=== PATIENT | male | born 1965 | race Caucasian/White ===

== ENCOUNTER 2016-11-12 14:38 | Emergency (ER) | payer BC ==
[~2016-11-12] VITALS: Ht 182.9 cm; Wt 107.1 kg
[~2016-11-12 14:38] MED LIST: ARIP15TA7 PO; ASPI81TA2 PO; ATOR40TA29 PO; CITA40TA6 PO; CLOP75TA33 PO; FISH1CAP29 PO; HYDR-3989 PO; INSU100I3 SQ; INSU100V12 SQ; OMEP40CA52 PO; PANT40TA27 PO
--- NOTE | 2016-11-12 14:40 | NUR ---
ACTIVITY PATIENT AMBULATORY TO RESTROOM, PATIENT CONTINUES TO BE UNSTEADY ON HIS FEET, PATIENT ASSISTED TO RESTROOM AND RN REMAINS IN RESTROOM WITH PATIENT, PATIENT VOIDS LARGE AMOUNT PALE YELLOW URINE. PATIENT ASSISTED BACK TO BED.
[2016-11-12 14:41] VITALS: Ht 182.9 cm; Wt 107.1 kg
--- OUTSIDE RECORDS SUMMARY | 2016-11-12 14:42 | XMS REPORT | Continuity of Care Document ---
Author Author [facility] Organization [facility] Address Unknown Phone Unavailable Support Name Relationship Address Phone PHOENIX CHANDLER II, MD Caregiver [address] [phone] LORENZO QUILES MD Caregiver [address] [place] [address] [place] [phone] NYLA WATTS Next Of Kin [address] [place] [address] CP Insurance Providers Payer Name Policy Number Subscriber Name Relationship [facility] [id number] Nyla Watts 01 Spouse Advance Directives Directive Response Recorded Date/Time Advanced Directives Type None 12/15/13 9:23pm Ordered Resuscitation Status Full Code 12/15/13 7:47pm Chief Complaint and Reason for Visit Chief Complaint Chest Pain Reason for Visit Orthostasis [id number] Chest pain Problems Medical Problems Problem Onset Date Status Clostridium difficile colitis Unknown Active Clostridium difficile colitis Unknown Active IDDM (insulin dependent diabetes mellitus) Unknown Active Orthostasis Unknown Active Chest pain Unknown Active IDDM (insulin dependent diabetes mellitus) Unknown Active IDDM (insulin dependent diabetes mellitus) Unknown Active Abnormal head CT Unknown Active IDDM (insulin dependent diabetes mellitus) Unknown Active Medications Medication Dose Route Sig Days/Qty Instructions Order Date Discontinued Date Status Insulin Lispro 20 U SQ WITH MEALS 09/10/08 10/27/11 Discontinued Clopidogrel Bisulfate 1 Tab PO DAILY 09/10/08 10/06/10 Discontinued Ranitidine Hcl DAILY 10/06/10 Active Citalopram Hydrobromide 40 DAILY 10/06/10 Active Insulin Glargine 40 SQ BEDTIME 10/06/10 10/27/11 Discontinued Insulin Detemir 28 U SQ TWICE A DAY 10/27/11 02/17/13 Discontinued [Insulin] 20 BEFORE MEALS 10/27/11 02/17/13 Discontinued Aspirin 325 Mg PO DAILY 02/17/13 Active Fish Oil/[place]-3 Fatty Acids 4 Cap PO DAILY 02/17/13 Active Insulin Glulisine 20 U SQ BEFORE MEALS 02/17/13 Active Insulin Detemir 8-12 U SQ TWICE A DAY 12/15/13 Active Atorvastatin Calcium 40 Mg PO BEDTIME 12/15/13 Active Omeprazole 20 Mg PO BEDTIME 12/15/13 Active Bupropion Hcl 100 Mg PO TWICE A DAY 12/15/13 Active Colestipol Hcl 5 G PO TWICE A DAY 01/13/14 Active Scopolamine Hydrobromide 0.4 Mg PO FOUR TIMES DAILY 01/14/14 Active Social History Social History Problem Response Recorded Date/Time Smoking Status Current every day smoker 01/14/2014 8:09am Chewing Tobacco Status No 01/13/2014 5:04pm Hx Substance Use No 01/13/2014 5:04pm Hx Alcohol Use No 12/15/2013 8:23pm Has the pt used tobacco in the last 12 months Yes 01/14/2014 8:09am Query Response Start Date Stop Date Smoking Status Current every day smoker Hospital Discharge Instructions Instructions: Care Instructions: Reason for Hospitalization: CHEST PAIN, ORTHOSTATIS, POOR DIABETES CONTROL I was in the hospital because (patient own words): "I THOUGHT I WAS HAVING A HEART ATTACK" Follow Up Appointments: FOLLOW UP WITH: - DR. CHANDLER 12/28/13 AT 8:30 AM - [phone] - DR. GARBER 12/24/13 AT 3:15 PM - [phone] Condition at time of discharge: Good Care Plan Discharge Patient: Patient Instructions: see patient instructions Plan of Care Discharge Date 12/16/13 3:15pm Disposition 02 TO OBS [facility] Condition at Discharge Stable Instructions/Education Provided DI for Diabetes Type 2 DI for Chest Pain Prescriptions See Medications Section Referrals PHOENIX CHANDLER II, MD Functional Status Query Response Date Recorded Physical Hygiene Self December 16, 2013 2:56pm Disabilities None December 16, 2013 2:56pm Devices Used None December 16, 2013 2:56pm Dressing Self December 16, 2013 2:56pm Ambulation Self December 16, 2013 2:56pm Diet Self December 16, 2013 2:56pm Mental Status Alert Oriented December 16, 2013 2:56pm Disabilities None December 16, 2013 2:56pm Devices Used None December 16, 2013 2:56pm Physical Hygiene Self December 16, 2013 2:56pm Dressing Self December 16, 2013 2:56pm Ambulation Self December 16, 2013 2:56pm Diet Self December 16, 2013 2:56pm Allergies, Adverse Reactions, Alerts Allergen Type Severity Reaction Status Last Updated No Known Drug Allergies Allergy Unknown Active 12/15/13 Immunizations Name Given Type Hx Influenza Vaccination No Historical Hx Pneumococcal Vaccination No Historical Hx Tetanus, Diptheria, Pertussis No Historical Hx Influenza Vaccination No Historical Hx Tetanus, Diptheria, Pertussis No Historical Vital Signs Acute Vital Signs Vital Response Date/Time Temperature (Fahrenheit) 96.9 deg F (96.8 - 99.1) Temperature (Calculated Celsius) 36.25915 degrees C (36.0 - 37.3) Temperature Source Temporal Pulse Rate (adult) 101 bpm (60 - 100) Respiratory Rate 20 breaths/min (10 - 20) O2 Sat by Pulse Oximetry 97 % (90 - 100) Blood Pressure 122/72 mm Hg Blood Pressure Source Automatic Cuff Height 6 ft 0 in Weight 191 lb Body Mass Index 26.0 kg/m^2 Results Test Source Date Result Interp. Ref. Range Comments Acetone Level December 15, 2013 6:50pm Negative - Activated Partial Thromboplast Time December 15, 2013 6:50pm 29.4 SEC N 24- 36 Ordering r/o VTE Yes Alanine Aminotransferase (ALT/SGPT) December 15, 2013 6:50pm 32 U/L N 21-72 Albumin December 15, 2013 6:50pm 3.8 G/DL N 3.5-5.0 Albumin/Globulin Ratio December 15, 2013 6:50pm 1.4 RATIO N 1.1-2.2 Alkaline Phosphatase December 15, 2013 6:50pm 125 U/L N 38-126 Amylase Level December 15, 2013 6:50pm 49 U/L N 30-110 Anion Gap December 15, 2013 6:50pm 8 MEQ/L N 5-15 Arterial Blood Base Excess February 17, 2013 1:30pm -0.9 MMOL/L N -2.0- 2.0 Arterial Blood HCO3 February 17, 2013 1:30pm 24 MEQ/L N 22-26 Arterial Blood Oxygen Content February 17, 2013 1:30pm 1.5 - Arterial Blood Oxygen Saturation February 17, 2013 1:30pm 95.0 % N 95.0- 98.0 Arterial Blood Partial Pressure CO2 February 17, 2013 1:30pm 37 MMHG N 34- 45 Arterial Blood Total CO2 February 17, 2013 1:30pm 24.6 MEQ/L N 23-27 Arterial Blood pH February 17, 2013 1:30pm 7.410 N 7.350-7.450 Aspartate Amino Transf (AST/SGOT) December 15, 2013 6:50pm 20 U/L N 17-59 BUN/Creatinine Ratio December 15, 2013 6:50pm 38 RATIO H 6-26 Basophils # (Auto) December 15, 2013 6:50pm 0.1 T/MM3 N 0-0.2 Ordering r/o VTE Yes Basophils (%) (Auto) December 15, 2013 6:50pm 0.7 % N 0-2 Ordering r/o VTE Yes Blood Urea Nitrogen December 15, 2013 6:50pm 19.0 MG/DL N 9-20 Calcium Level December 15, 2013 6:50pm 9.3 MG/DL N 8.4-10.2 Calculated Osmolality December 15, 2013 6:50pm 268 MOSM/KG N 261-280 Carbon Dioxide Level December 15, 2013 6:50pm 26 MEQ/L N 22-30 Chloride Level December 15, 2013 6:50pm 104 MEQ/L N 98-107 Conjugated Bilirubin November 07, 2011 2:16am 0.00 MG/DL N 0.00-0.30 Creatinine December 15, 2013 6:50pm 0.5 MG/DL L 0.8-1.5 D-Dimer December 15, 2013 6:50pm < 150 NG/ML 0-230 <224 NG/ML= PRESUMPTIVE NEGATIVE FOR PE OR DVT>224 NG/ML=ADDITIONAL EVALUATION FOR PE OR DVT RECOMMENDED Eosinophils # (Auto) December 15, 2013 6:50pm 0.2 T/MM3 N 0-0.5 Ordering r/ o VTE Yes Eosinophils # (Manual) October 13, 2013 2:02pm 0.7 T/MM3 H 0-0.5 Eosinophils % (Manual) October 13, 2013 2:02pm 5.0 % H 0-4 Eosinophils (%) (Auto) December 15, 2013 6:50pm 1.7 % N 0-4 Ordering r/o VTE Yes Globulin December 15, 2013 6:50pm 2.8 G/DL N 2.4-3.6 Glucose Level December 15, 2013 6:50pm 98 MG/DL N 75-110 Hematocrit December 15, 2013 6:50pm 40.6 % L 41-53 Ordering r/o VTE Yes Hemoglobin December 15, 2013 6:50pm 13.4 GM/DL L 13.5-17.5 Ordering r/o VTE Yes Hemoglobin A1c November 07, 2011 7:00am 11.0 % H 6-7 <6.0 NON-DIABETIC RANGE6.0-7.0 ADA THERAPEUTIC RANGE >7.0 ACTION SUGGESTED Lipase December 15, 2013 6:50pm 59 U/L N 23-300 Lymphocytes # (Auto) December 15, 2013 6:50pm 3.5 T/MM3 N 1-4.8 Ordering r/ o VTE Yes Lymphocytes # (Manual) October 13, 2013 2:02pm 2.4 T/MM3 N 1-4.8 Lymphocytes % (Manual) October 13, 2013 2:02pm 18.0 % L 23-45 Lymphocytes (%) (Auto) December 15, 2013 6:50pm 31.7 % N 23-45 Ordering r/ o VTE Yes Magnesium Level December 15, 2013 6:50pm 1.9 MG/DL N 1.6-2.3 Mean Corpuscular Hemoglobin December 15, 2013 6:50pm 23.0 UUG L 26-34 Ordering r/o VTE Yes Mean Corpuscular Hemoglobin Concent December 15, 2013 6:50pm 33.0 GM/DL N 31 -37 Ordering r/o VTE Yes Mean Corpuscular Volume December 15, 2013 6:50pm 69.8 UM3 L 80-100 Ordering r/o VTE Yes Mean Platelet Volume December 15, 2013 6:50pm 10.1 UM3 N 9.4-12.4 Ordering r/o VTE Yes Monocytes # (Auto) December 15, 2013 6:50pm 0.9 T/MM3 H 0-0.8 Ordering r/o VTE Yes Monocytes # (Manual) October 13, 2013 2:02pm 0.8 T/MM3 N 0-0.8 Monocytes % (Manual) October 13, 2013 2:02pm 6.0 % N 0-9.0 Monocytes (%) (Auto) December 15, 2013 6:50pm 8.3 % N 0-9.0 Ordering r/o VTE Yes Neutrophils # (Auto) December 15, 2013 6:50pm 6.2 T/MM3 N 1.8-7.7 Ordering r/o VTE Yes Neutrophils # (Manual) October 13, 2013 2:02pm 9.4 T/MM3 H 1.8-7.7 Neutrophils % (Manual) October 13, 2013 2:02pm 71.0 % H 33-66 Neutrophils (%) (Auto) December 15, 2013 6:50pm 57.3 % N 33-66 Ordering r/ o VTE Yes Platelet Count December 15, 2013 6:50pm 274 T/MM3 N 130-400 Ordering r/o VTE Yes Potassium Level December 15, 2013 6:50pm 3.6 MEQ/L N 3.6-5 Prothromb Time International Ratio December 15, 2013 6:50pm 0.81 N 0.81- 1.09 THERAPUTIC RANGE=2.00-3.00 FOR ANTI-THROMBOSIS THERAPUTIC RANGE=2.50- 3.50 FOR IMPLANTED VALVE RDW Standard Deviation December 15, 2013 6:50pm 41.6 FL N 36.9-50.2 Ordering r/o VTE Yes Red Blood Count December 15, 2013 6:50pm 5.82 M/MM3 N 4.50-5.90 Ordering r/ o VTE Yes Sodium Level December 15, 2013 6:50pm 138 MEQ/L N 134-144 Stool for White Cells October 13, 2013 1:49pm Positive - Has specimen been collected/obtained? Y Thyroid Stimulating Hormone (TSH) December 15, 2013 6:50pm 2.07 MIU/L N 0.47 -4.68 Total Bilirubin December 15, 2013 6:50pm 0.10 MG/DL L 0.20-1.30 Total Protein December 15, 2013 6:50pm 6.6 G/DL N 6.3-8.2 Troponin I December 16, 2013 4:40am < 0.012 ng/ml 0-0.12 Unconjugated Bilirubin November 07, 2011 2:16am 0.10 MG/DL N 0.00-1.10 Urine Bilirubin December 15, 2013 7:05pm 1+ H - Has specimen been collected /obtained? Y Urine Blood December 15, 2013 7:05pm Negative - Has specimen been collected/obtained? Y Urine Collection Type December 15, 2013 7:05pm Voided-not cc-midstr - Has specimen been collected/obtained? Y Urine Color December 15, 2013 7:05pm Yellow - Has specimen been collected /obtained? Y Urine Glucose (UA) December 15, 2013 7:05pm 1+ H - Has specimen been collected/obtained? Y Urine Ketones December 15, 2013 7:05pm 1+ H - Has specimen been collected/ obtained? Y Urine Leukocyte Esterase December 15, 2013 7:05pm Negative - Has specimen been collected/obtained? Y Urine Nitrite December 15, 2013 7:05pm Negative - Has specimen been collected/obtained? Y Urine Protein December 15, 2013 7:05pm Negative - Has specimen been collected/obtained? Y Urine Specific [place] December 15, 2013 7:05pm 1.025 - Has specimen been collected/obtained? Y Urine Turbidity December 15, 2013 7:05pm Clear - Has specimen been collected/obtained? Y Urine Urobilinogen December 15, 2013 7:05pm 0.2 EU/DL - Has specimen been collected/obtained? Y Urine pH December 15, 2013 7:05pm 6.0 - Has specimen been collected/ obtained? Y Vitamin B12 Level November 07, 2011 7:00am 845 PG/ML N 239-931 COMMENT may use blood in lab White Blood Count December 15, 2013 6:50pm 10.9 T/MM3 N 4.5-11.0 Ordering r /o VTE Yes Chemistry Specimen Hemolysis December 16, 2013 4:40am < 15 0-25 0-25: No Hemolysis.26-70: Slight Hemolysis - can falsely elevate K and Urine Protein. 71-285: Moderate Hemolysis - can falsely elevate K, Troponin I, CA 19-9, PTH, CSF GLucose, and Urine Protein, and can falsely decrease Phenytoin. 286-999: Gross Hemolysis - can falsely elevate K, Troponin I, CA 19-9, PTH, CSF Glucose, and Urine Protine, and can falsely decrease Phenytoin. Recommend specimen recollection. Oxygen Delivery Method (LAB) February 17, 2013 1:30pm Nasal cannula,liters - Urinalysis Comment December 15, 2013 7:05pm Microscopic not ind. - Has specimen been collected/obtained? Y Glucometer January 14, 2014 8:10am 389 mg/dL H 75-110 Turbidity December 15, 2013 6:50pm < 20 0-20 Glomerular Filtration Rate Calc December 15, 2013 6:50pm 179 - Immature Granulocyte # (Auto) December 15, 2013 6:50pm 0.03 T/MM3 N 0.00- 0.03 Ordering r/o VTE Yes Immature Granulocyte % (Auto) December 15, 2013 6:50pm 0.3 % N 0.0-0.5 Ordering r/o VTE Yes Arterial Blood pO2 at Patient Temp February 17, 2013 1:30pm 76 MMHG L 80- 100 Icterus Index December 15, 2013 6:50pm < 2 0-7 [id number]-Z-[id number] Natriuretic Peptide December 15, 2013 6:50pm 41 PG/ML N 0-175 Rule in cut points: <50 years old=450; 50-75 years old=900; >75 years old=1800; When utilizing ProBNP rule-in cut points, adjustment for impaired renal function is typically not required. Urine Microscopic Not Indicated November 07, 2011 3:10am Not indicated - Has specimen been collected/obtained? Y C. difficile Toxin B Gene (PCR) October 13, 2013 1:49pm Positive H - Has specimen been collected/obtained? Y Blood Culture Blood November 07, 2011 3:40am NO GROWTH AFTER 5 DAYS Stool Culture Stool October 13, 2013 1:49pm Ova and Parasites Stool October 13, 2013 2:45pm Procedures Procedure Status Date Provider(s) Colonoscopy completed 01/14/14 LORENZO QUILES MD Encounters Encounter Location Date/Time Registered Clinic [facility] 01/14/14 7:52am Registered Clinic [facility] 12/31/13 8:09am Discharged Inpatient [facility] 12/15/13 8:30pm Discharged Recurring [facility] 11/05/13 8:25am Recent Diagnosis IDDM (insulin dependent diabetes mellitus)
--- OUTSIDE RECORDS SUMMARY | 2016-11-12 14:43 | XMS REPORT | Continuity of Care Document ---
Author Author [facility] Organization [facility] Address Unknown Phone Unavailable Support Name Relationship Address Phone FREDERICK AYALA MD Caregiver [facility] [address] [place] [address] SAHRA KELLY [address] [place] [id number] LEO COLUNGA DO Caregiver [facility] [address] [place] [address] PHOENIX RUSSELL II, MD Caregiver [address] [place] [address] [phone] NYLA WATTS Next Of Kin [address] [place] [address] CP Insurance Providers Payer Name Policy Number Subscriber Name Relationship [facility] [id number] Nyla Watts 01 Spouse Advance Directives Directive Response Recorded Date/Time Advanced Directives Type None 12/15/13 9:23pm Ordered Resuscitation Status Full Code 12/15/13 7:47pm Resuscitation Documents on File No 07/19/14 6:50pm Chief Complaint and Reason for Visit Chief Complaint RT SIDE NUMBNESS,BLURRED VISION RT EYE Reason for Visit Numbness on right side Blurred vision, right eye Numbness on right side Problems Medical Problems Problem Onset Date Status Clostridium difficile colitis Unknown Active Clostridium difficile colitis Unknown Active IDDM (insulin dependent diabetes mellitus) Unknown Active Orthostasis Unknown Active Chest pain Unknown Active IDDM (insulin dependent diabetes mellitus) Unknown Active IDDM (insulin dependent diabetes mellitus) Unknown Active Abnormal head CT Unknown Active IDDM (insulin dependent diabetes mellitus) Unknown Active Numbness on right side Unknown Active Blurred vision, right eye Unknown Active Numbness on right side Unknown Active Medications Medication Dose Route Sig Days/Qty Instructions Order Date Discontinued Date Status Insulin Lispro 20 U SQ WITH MEALS 09/10/08 10/27/11 Discontinued Clopidogrel Bisulfate 1 Tab PO DAILY 09/10/08 10/06/10 Discontinued Ranitidine Hcl 150 Mg PO BEDTIME 10/06/10 Active Insulin Glargine 40 SQ BEDTIME 10/06/10 10/27/11 Discontinued Insulin Detemir 28 U SQ TWICE A DAY 10/27/11 02/17/13 Discontinued [Insulin] 20 BEFORE MEALS 10/27/11 02/17/13 Discontinued Aspirin 325 Mg PO BEDTIME 02/17/13 07/20/14 Discontinued Fish Oil/[place]-3 Fatty Acids 4 Cap PO BEDTIME 02/17/13 Active Insulin Glulisine 20 U SQ TWICE DAILY BREAKFAST & LUNCH 02/17/13 Active Insulin Detemir 12 U SQ BEDTIME 12/15/13 Active Atorvastatin Calcium 40 Mg PO BEDTIME 12/15/13 Active Citalopram Hydrobromide 1 Tab PO BEDTIME 02/03/14 Active Omeprazole 20 Mg PO BEDTIME 02/03/14 07/20/14 Discontinued Insulin Glulisine 22 Unit SQ GIVE WITH SUPPER 02/03/14 Active Insulin Detemir 13 Unit SQ DAILY MORNING INSULIN 02/03/14 Active Meclizine HCl 25 Mg PO TWICE A DAY 02/03/14 Active Aspirin 81 Mg PO DAILY For CAD 30 Days 07/20/14 Active Clopidogrel Bisulfate 75 Mg PO DAILY For CVA 30 Days 07/20/14 Active Pantoprazole Sodium 40 Mg PO BEFORE BREAKFAST 30 Qty Take 1 tablet, by mouth, one time a day before breakfast. 07/20/14 Active Social History Social History Problem Response Recorded Date/Time Hx Substance Use No 07/19/2014 12:40pm Hx Alcohol Use No 07/19/2014 12:40pm Has the pt used tobacco in the last 12 months Yes 07/19/2014 6:50pm Tobacco Usage smoke 10/13/2013 4:57pm Query Response Start Date Stop Date Smoking Status Current every day smoker Hospital Discharge Instructions Instructions: Care Instructions: Reason for Hospitalization: CVA I was in the hospital because (patient own words): "NUMBNESS ON MY RIGHT SIDE" Discharge Diet: ADA 1999 Discharge Activity: As tolerated do not return to work until after appointment with on saturday. dr. russell states that it is ok for you to drive to [place] for class tomorrow 07/21 if you decide to not cancel your class. Follow Up Appointments: APPOINTMENT WITH DR. TAVARES ON JUL 21 AT 4:00. With Dr Russell 07/26 at 9:15 AM [facility] Patient Instructions: Stop Smoking STOP BY THE CLINIC AFTER DISCHARGE TODAY FOR [facility] SAMPLES Condition at time of discharge: Good Condition at time of discharge: Good have your Surgeon paged. Condition at time of discharge: [place] Plan of Care Discharge Date 07/20/14 4:20pm Disposition 01 DISCHARGED HOME, SELF-CARE Instructions/Education Provided Ischemic Stroke Prescriptions See Medications Section Functional Status Query Response Date Recorded Physical Hygiene Self July 19, 2014 12:40pm Disabilities None December 16, 2013 2:56pm Devices Used None December 16, 2013 2:56pm Dressing Self December 16, 2013 2:56pm Ambulation Self December 16, 2013 2:56pm Diet Self December 16, 2013 2:56pm Mental Status Alert Oriented December 16, 2013 2:56pm Disabilities None December 16, 2013 2:56pm Devices Used None December 16, 2013 2:56pm Physical Hygiene Self July 19, 2014 12:40pm Dressing Self December 16, 2013 2:56pm Ambulation Self December 16, 2013 2:56pm Diet Self December 16, 2013 2:56pm Allergies, Adverse Reactions, Alerts Allergen Type Severity Reaction Status Last Updated No Known Drug Allergies Allergy Unknown Active 02/03/14 Immunizations Name Given Type Hx Influenza Vaccination No Historical Hx Pneumococcal Vaccination No Historical Hx Tetanus, Diptheria, Pertussis No Historical Hx Influenza Vaccination No Historical Hx Tetanus, Diptheria, Pertussis No Historical Vital Signs Acute Vital Signs Vital Response Date/Time Temperature (Fahrenheit) 98.6 deg F (96.8 - 99.1) Temperature (Calculated Celsius) 37.83836 degrees C (36.0 - 37.3) Temperature Source Temporal Pulse Rate (adult) 75 bpm (60 - 100) Respiratory Rate 16 breaths/min (10 - 20) O2 Sat by Pulse Oximetry 95 % (90 - 100) Oxygen Delivery Method Room Air Blood Pressure 119/85 mm Hg Blood Pressure Source Automatic Cuff Height 6 ft 0 in Weight 201 lb Body Mass Index 27.0 kg/m^2 Results Test Source Date Result Interp. Ref. Range Comments Acetone Level December 15, 2013 6:50pm Negative - Activated Partial Thromboplast Time July 19, 2014 1:02pm 28.8 SEC N 24-36 Alanine Aminotransferase (ALT/SGPT) July 19, 2014 1:02pm 29 U/L N 21- 72 Albumin July 19, 2014 1:02pm 4.0 G/DL N 3.5-5.0 Albumin/Globulin Ratio July 19, 2014 1:02pm 1.5 RATIO N 1.1-2.2 Alkaline Phosphatase July 19, 2014 1:02pm 124 U/L N 38-126 Amylase Level December 15, 2013 6:50pm 49 U/L N 30-110 Anion Gap July 19, 2014 1:02pm 7 MEQ/L N 5-15 Arterial Blood Base Excess [...] February 17, 2013 1:30pm 7.410 N 7.350-7.450 Arterial Blood pO2 at Patient Temp February 17, 2013 1:30pm 76 MMHG L 80- 100 Aspartate Amino Transf (AST/SGOT) July 19, 2014 1:02pm 28 U/L N 17- 59 BUN/Creatinine Ratio July 19, 2014 1:02pm 27 RATIO H 6-26 Basophils # (Auto) July 19, 2014 1:03pm 0.1 T/MM3 N 0-0.2 Basophils (%) (Auto) July 19, 2014 1:03pm 1.0 % N 0-2 Blood Urea Nitrogen July 19, 2014 1:02pm 19.0 MG/DL N 9-20 C. difficile Toxin B Gene (PCR) October 13, 2013 1:49pm Positive H - Has specimen been collected/obtained? Y Calcium Level July 19, 2014 1:02pm 9.5 MG/DL N 8.4-10.2 Calculated Osmolality July 19, 2014 1:02pm 280 MOSM/KG N 261-280 Carbon Dioxide Level July 19, 2014 1:02pm 29 MEQ/L N 22-30 Chemistry Specimen Hemolysis July 19, 2014 1:02pm < 15 0-25 0-25: No Hemolysis.26-70: Slight [...] can falsely decrease Phenytoin. Recommend specimen recollection. Chloride Level July 19, 2014 1:02pm 105 MEQ/L N 98-107 Conjugated Bilirubin November 07, 2011 2:16am 0.00 MG/DL N 0.00-0.30 Creatinine July 19, 2014 1:02pm 0.7 MG/DL L 0.8-1.5 D-Dimer December 15, 2013 6:50pm < 150 NG/ML 0-230 <224 NG/ML= PRESUMPTIVE NEGATIVE FOR PE OR DVT>224 NG/ML=ADDITIONAL EVALUATION FOR PE OR DVT RECOMMENDED Eosinophils # (Auto) July 19, 2014 1:03pm 0.1 T/MM3 N 0-0.5 Eosinophils # (Manual) October 13, 2013 2:02pm 0.7 T/MM3 H 0-0.5 Eosinophils % (Manual) October 13, 2013 2:02pm 5.0 % H 0-4 Eosinophils (%) (Auto) July 19, 2014 1:03pm 1.0 % N 0-4 Globulin July 19, 2014 1:02pm 2.7 G/DL N 2.4-3.6 Glomerular Filtration Rate Calc July 19, 2014 1:02pm 121 - Glucometer July 20, 2014 3:57pm 69 mg/dL L 75-110 Glucose Level July 19, 2014 1:02pm 228 MG/DL H 75-110 Hematocrit July 19, 2014 1:03pm 40.3 % L 41-53 Hemoglobin July 19, 2014 1:03pm 13.1 GM/DL L 13.5-17.5 Hemoglobin A1c November 07, 2011 7:00am 11.0 % H 6-7 <6.0 NON-DIABETIC RANGE6.0-7.0 ADA THERAPEUTIC RANGE >7.0 ACTION SUGGESTED Icterus Index July 19, 2014 1:02pm < 2 0-7 Immature Granulocyte # (Auto) July 19, 2014 1:03pm 0.03 T/MM3 N 0.00- 0.03 Immature Granulocyte % (Auto) July 19, 2014 1:03pm 0.3 % N 0.0-0.5 Lipase December 15, 2013 6:50pm 59 U/L N 23-300 Lymphocytes # (Auto) July 19, 2014 1:03pm 2.9 T/MM3 N 1-4.8 Lymphocytes # (Manual) October 13, 2013 2:02pm 2.4 T/MM3 N 1-4.8 Lymphocytes % (Manual) October 13, 2013 2:02pm 18.0 % L 23-45 Lymphocytes (%) (Auto) July 19, 2014 1:03pm 26.0 % N 23-45 Magnesium Level December 15, 2013 6:50pm 1.9 MG/DL N 1.6-2.3 Mean Corpuscular Hemoglobin July 19, 2014 1:03pm 23.6 UUG L 26-34 Mean Corpuscular Hemoglobin Concent July 19, 2014 1:03pm 32.5 GM/DL N 31-37 Mean Corpuscular Volume July 19, 2014 1:03pm 72.6 UM3 L 80-100 Mean Platelet Volume July 19, 2014 1:03pm 10.1 UM3 N 9.4-12.4 Monocytes # (Auto) July 19, 2014 1:03pm 0.7 T/MM3 N 0-0.8 Monocytes # (Manual) October 13, 2013 2:02pm 0.8 T/MM3 N 0-0.8 Monocytes % (Manual) October 13, 2013 2:02pm 6.0 % N 0-9.0 Monocytes (%) (Auto) July 19, 2014 1:03pm 6.7 % N 0-9.0 NF-Tpb-U-Type Natriuretic Peptide December 15, 2013 6:50pm 41 PG/ML N 0-175 Rule in cut points: <50 years old=450; 50-75 years old=900; >75 years old=1800; When utilizing ProBNP rule-in cut points, adjustment for impaired renal function is typically not required. Neutrophils # (Auto) July 19, 2014 1:03pm 7.2 T/MM3 N 1.8-7.7 Neutrophils # (Manual) October 13, 2013 2:02pm 9.4 T/MM3 H 1.8-7.7 Neutrophils % (Manual) October 13, 2013 2:02pm 71.0 % H 33-66 Neutrophils (%) (Auto) July 19, 2014 1:03pm 65.0 % N 33-66 Oxygen Delivery Method (LAB) February 17, 2013 1:30pm Nasal cannula,liters - Platelet Count July 19, 2014 1:03pm 226 T/MM3 N 130-400 Potassium Level July 19, 2014 1:02pm 3.8 MEQ/L N 3.6-5 Prothromb Time International Ratio July 19, 2014 1:02pm 0.94 N 0.81- 1.09 THERAPUTIC RANGE=2.00-3.00 FOR ANTI-THROMBOSIS THERAPUTIC RANGE=2.50- 3.50 FOR IMPLANTED VALVE RDW Standard Deviation July 19, 2014 1:03pm 42.5 FL N 36.9-50.2 Red Blood Count July 19, 2014 1:03pm 5.55 M/MM3 N 4.50-5.90 Sodium Level July 19, 2014 1:02pm 141 MEQ/L N 134-144 Stool for White Cells October 13, 2013 1:49pm Positive - Has specimen been collected/obtained? Y Thyroid Stimulating Hormone (TSH) December 15, 2013 6:50pm 2.07 MIU/L N 0.47 -4.68 Total Bilirubin July 19, 2014 1:02pm 0.50 MG/DL N 0.20-1.30 Total Protein July 19, 2014 1:02pm 6.7 G/DL N 6.3-8.2 Troponin I July 19, 2014 1:02pm < 0.012 ng/ml 0-0.12 Turbidity July 19, 2014 1:02pm < 20 0-20 Unconjugated Bilirubin November 07, 2011 2:16am 0.10 MG/DL N 0.00-1.10 Urinalysis Comment July 19, 2014 2:40pm Microscopic not ind. - Has specimen been collected/obtained? Y Urine Bilirubin July 19, 2014 2:40pm Negative - Has specimen been collected/obtained? Y Urine Blood July 19, 2014 2:40pm Negative - Has specimen been collected/obtained? Y Urine Collection Type July 19, 2014 2:40pm Cleancatch-midstream - Has specimen been collected/obtained? Y Urine Color July 19, 2014 2:40pm Yellow - Has specimen been collected/obtained? Y Urine Glucose (UA) July 19, 2014 2:40pm 3+ H - Has specimen been collected/obtained? Y Urine Ketones July 19, 2014 2:40pm Negative - Has specimen been collected/obtained? Y Urine Leukocyte Esterase July 19, 2014 2:40pm Negative - Has specimen been collected/obtained? Y Urine Microscopic Not Indicated November 07, 2011 3:10am Not indicated - Has specimen been collected/obtained? Y Urine Nitrite July 19, 2014 2:40pm Negative - Has specimen been collected/obtained? Y Urine Protein July 19, 2014 2:40pm Negative - Has specimen been collected/obtained? Y Urine Specific [place] July 19, 2014 2:40pm 1.010 L - Has specimen been collected/obtained? Y Urine Turbidity July 19, 2014 2:40pm Clear - Has specimen been collected/obtained? Y Urine Urobilinogen July 19, 2014 2:40pm 0.2 EU/DL - Has specimen been collected/obtained? Y Urine pH July 19, 2014 2:40pm 6.0 - Has specimen been collected/ obtained? Y Vitamin B12 Level November 07, 2011 7:00am 845 PG/ML N 785-298 COMMENT may use blood in lab White Blood Count July 19, 2014 1:03pm 11.1 T/MM3 H 4.5-11.0 Blood Culture Blood November 07, 2011 3:40am NO GROWTH AFTER 5 DAYS Stool Culture Stool October 13, 2013 1:49pm Ova and Parasites Stool October 13, 2013 2:45pm Name: ISRAEL WATTS Unit #: [id number] : [id number] Sex: M Loc / Sv: ED DOS: 07/19/14 Signed Report #: [id number] DIAGNOSTIC IMAGING REPORT TYPE OF EXAM: MRI BRAIN W/WO CONTRAST Dictated By: LENORE FLORES MD INDICATION: ITS.REASON: right sided numbness / blurred vision right eye MRI BRAIN W/WO CONTRAST: Comparisons: Head CT from earlier today and brain MRI dated December 31, 2013 Technique: Multiplanar, multisequence, MR imaging of the head with and without contrast was acquired. Contrast: 9 mL of Gadavist FINDINGS: The ventricles are of normal size, shape, and contour for the patient's age. The brain stem, cerebellum, and cerebral hemispheres have a normal morphologic appearance as well as MR signal intensity on all pulse sequences. Following intravenous administration of contrast, no areas of abnormal enhancement are evident. There are no areas of restricted diffusion to suggest an acute infarct. There is no evidence of an intracranial mass lesion, intracranial hemorrhage, or hydrocephalus. The visualized portions of the orbits, calvarium, paranasal sinuses, and skull base demonstrate no significant abnormality. IMPRESSION: Normal exam. No acute intracranial abnormality. . Procedures No known history of procedures. Encounters Encounter Location Date/Time Discharged Inpatient [facility] 07/19/14 3:59pm Recent Diagnosis Numbness on right side Blurred vision, right eye Numbness on right side
--- OUTSIDE RECORDS SUMMARY | 2016-11-12 14:43 | XMS REPORT | Continuity of Care Document ---
Author Author [facility] Organization [facility] Address Unknown Phone Unavailable Support Name Relationship Address Phone PHOENIX CHANDLER II, MD Caregiver [address] [place] [phone] LORENZO QUILES MD Caregiver [address] [place] [address] [place] [phone] NYLA WATTS Next Of Kin [address] [place] [address] CP Insurance Providers Payer Name Policy Number Subscriber Name Relationship [facility] [id number] Nyla Watts 01 Spouse Advance Directives Directive Response Recorded Date/Time Advanced Directives Type None 12/15/13 9:23pm Ordered Resuscitation Status Full Code 12/15/13 7:47pm Chief Complaint and Reason for Visit Chief Complaint Chest Pain Reason for Visit Orthostasis [id number] Chest pain Problems Medical Problems Problem Onset [...] 325 Mg PO DAILY 02/17/13 Active Fish Oil/[place]-3 Fatty Acids 4 Cap PO DAILY 02/17/13 [...] DR. CHANDLER 12/28/13 AT 8:30 AM - [phone] - DR. GARBER 12/24/13 AT 3:15 PM - [phone] Condition at time of discharge: Good Care Plan Discharge Patient: Patient Instructions: see patient instructions Problem: see problem list Care Plan Discharge Patient: Goal: Pain is contolled Patient Instructions: see patient instructions for immediate evaluation. Condition at time of discharge: Good Care Plan Discharge Patient: Goal: Maximum functional status Patient Instructions: see patient instructions Plan of Care Discharge Date 12/16/13 3:15pm Disposition 02 [place] [facility] [place] at Discharge Stable Instructions/Education Provided DI [...] F (96.8 - 99.1) Temperature (Calculated Celsius) 36.24233 degrees C (36.0 - 37.3) Temperature Source [...] L 80- 100 Aspartate Amino Transf (AST/SGOT) December 15, 2013 6:50pm 20 U/L N 17-59 BUN/Creatinine Ratio December 15, 2013 6:50pm 38 RATIO H 6-26 Basophils # (Auto) December 15, 2013 6:50pm 0.1 T/MM3 N 0-0.2 Ordering r/o VTE Yes Basophils (%) (Auto) December 15, 2013 6:50pm 0.7 % N 0-2 Ordering r/o VTE Yes Blood Urea Nitrogen December 15, 2013 6:50pm 19.0 MG/DL N 9-20 C. difficile Toxin B Gene (PCR) October 13, 2013 1:49pm Positive H - Has specimen been collected/obtained? Y Calcium Level December 15, 2013 6:50pm 9.3 MG/DL N 8.4-10.2 Calculated Osmolality December 15, 2013 6:50pm 268 MOSM/KG N 261-280 Carbon Dioxide Level December 15, 2013 6:50pm 26 MEQ/L N 22-30 Chemistry Specimen Hemolysis December 16, 2013 4:40am [...] decrease Phenytoin. Recommend specimen recollection. Chloride Level December 15, 2013 6:50pm 104 [...] 15, 2013 6:50pm 2.8 G/DL N 2.4-3.6 Glomerular Filtration Rate Calc December 15, 2013 6:50pm 179 - Glucometer January 14, 2014 8:10am 389 mg/dL H 75-110 Glucose Level December 15, 2013 6:50pm 98 MG/DL N 75-110 Hematocrit December 15, 2013 6:50pm 40.6 % L 41-53 Ordering r/o VTE Yes Hemoglobin December 15, 2013 6:50pm 13.4 GM/DL L 13.5-17.5 Ordering r/o VTE Yes Hemoglobin A1c November 07, 2011 7:00am 11.0 % H 6-7 <6.0 NON-DIABETIC RANGE6.0-7.0 ADA THERAPEUTIC RANGE >7.0 ACTION SUGGESTED Icterus Index December 15, 2013 6:50pm < 2 0-7 Immature Granulocyte # (Auto) December 15, 2013 6:50pm 0.03 T/MM3 N 0.00- 0.03 Ordering r/o VTE Yes Immature Granulocyte % (Auto) December 15, 2013 6:50pm 0.3 % N 0.0-0.5 Ordering r/o VTE Yes Lipase December 15, 2013 6:50pm 59 U/L [...] % N 0-9.0 Ordering r/o VTE Yes MH-Chd-C-Type Natriuretic Peptide December 15, 2013 6:50pm 41 PG/ML N 0-175 Rule in cut points: <50 years old=450; 50-75 years old=900; >75 years old=1800; When utilizing ProBNP rule-in cut points, adjustment for impaired renal function is typically not required. Neutrophils # (Auto) December 15, 2013 6:50pm 6.2 T/MM3 N 1.8-7.7 Ordering r/o VTE Yes Neutrophils # (Manual) October 13, 2013 2:02pm 9.4 T/MM3 H 1.8-7.7 Neutrophils % (Manual) October 13, 2013 2:02pm 71.0 % H 33-66 Neutrophils (%) (Auto) December 15, 2013 6:50pm 57.3 % N 33-66 Ordering r/ o VTE Yes Oxygen Delivery Method (LAB) February 17, 2013 1:30pm Nasal cannula,liters - Platelet Count December 15, 2013 6:50pm 274 [...] 16, 2013 4:40am < 0.012 ng/ml 0-0.12 Turbidity December 15, 2013 6:50pm < 20 0-20 Unconjugated Bilirubin November 07, 2011 2:16am 0.10 MG/DL N 0.00-1.10 Urinalysis Comment December 15, 2013 7:05pm Microscopic not ind. - Has specimen been collected/obtained? Y Urine Bilirubin December 15, 2013 7:05pm 1+ [...] Has specimen been collected/obtained? Y Urine Specific [place] December 15, 2013 7:05pm 1.025 - Has [...] N 4.5-11.0 Ordering r /o VTE Yes Blood Culture Blood November 07, 2011 3:40am NO GROWTH AFTER 5 DAYS Stool Culture Stool October 13, 2013 1:49pm Ova and Parasites Stool October 13, 2013 2:45pm Procedures Procedure Status Date Provider(s) Colonoscopy completed 01/14/14 LORENZO QUILES MD Encounters Encounter Location Date/Time Registered Clinic [facility] 12/31/13 8:09am Discharged Inpatient [facility] 12/15/13 8:30pm Discharged Recurring [facility] 11/20/13 8:30am
--- OUTSIDE RECORDS SUMMARY | 2016-11-12 14:43 | XMS REPORT | Continuity of Care Document ---
Author Author [facility] Organization [facility] Address Unknown Phone Unavailable Support Name Relationship Address Phone FREDERICK AYALA MD Caregiver [facility] [address] [facility] [address] [place] [address] PHOENIX CHANDLER II, MD Caregiver [address] [place] [address] [phone] NYLA WATTS Next Of Kin [address] [place] [address] CP Insurance Providers Payer Name Policy Number Subscriber Name Relationship Rust [id number] Nyla Watts 01 Spouse Advance Directives Directive Response Recorded Date/Time Advanced Directives Type None 12/15/13 9:23pm Ordered Resuscitation Status Full Code 12/15/13 7:47pm Chief Complaint and Reason for Visit Chief Complaint Chest Pain Reason for Visit Orthostasis [id number] Chest pain Problems Medical Problems Problem Onset [...] Discontinued Aspirin 325 Mg PO BEDTIME 02/17/13 Active Fish Oil/[place]-3 Fatty Acids 4 Cap PO BEDTIME 02/17/13 Active Insulin Glulisine 20 U SQ TWICE DAILY BREAKFAST & LUNCH 02/17/13 Active Insulin Detemir 12 U SQ BEDTIME 12/15/13 Active Atorvastatin Calcium 40 Mg PO BEDTIME 12/15/13 Active Bupropion Hcl 100 Mg PO TWICE A DAY 12/15/13 Active Citalopram Hydrobromide 1 Tab PO BEDTIME 02/03/14 Active Omeprazole 20 Mg PO BEDTIME 02/03/14 Active Insulin Glulisine 22 Unit SQ GIVE WITH SUPPER 02/03/14 Active Insulin Detemir 13 Unit SQ DAILY MORNING INSULIN 02/03/14 Active Meclizine HCl 25 Mg PO TWICE A DAY 02/03/14 Active Social History Social History Problem Response Recorded Date/Time Smoking Status Current every day smoker 01/14/2014 8:09am Chewing Tobacco Status No 02/03/2014 12:12pm Hx Substance Use No 02/03/2014 12:12pm Hx Alcohol Use No 02/03/2014 12:12pm Has the pt used tobacco in the last 12 months Yes 02/03/2014 12:12pm Query Response Start Date Stop Date Smoking Status Current every day smoker Hospital Discharge Instructions Instructions: Care Instructions: Reason for Hospitalization: CHEST PAIN, ORTHOSTATIS, POOR DIABETES CONTROL I was in the hospital because (patient own words): "I THOUGHT I WAS HAVING A HEART ATTACK" Follow Up Appointments: FOLLOW UP WITH: - DR. CHANDLER 12/28/13 AT 8:30 AM - [phone] - DR. GARBER 12/24/13 AT 3:15 PM - [phone] Condition at time of discharge: Good Care Plan Discharge Patient: Patient Instructions: see patient instructions Good Care Plan Discharge Patient: Goal: Understand discharge plan Patient Instructions: see patient instructions Notify Physician If: fever, increasing pain in perineal area, any other concerns. (Dr. Foley covering for wound care February 04- February 08, if emergency care needed, may be contacted through hospital) New Scripts Called to Pharmacy: Levaquin 750mg by mouth every day for 3 weeks Flagyl 500mg by mouth two times a day for 3 weeks Condition at time of discharge: Good Care Plan Discharge Patient: Goal: Understand discharge plan Wound without infection Patient Instructions: see patient instructions Good Care Plan Discharge Patient: Goal: Understand discharge plan Patient Instructions: see patient instructions Patient Instructions: see patient instructions Plan of Care Discharge Date 12/16/13 3:15pm Disposition 02 TO OBS [facility] Condition at Discharge Stable Instructions/Education Provided DI [...] F (96.8 - 99.1) Temperature (Calculated Celsius) 36.41959 degrees C (36.0 - 37.3) Temperature Source Temporal Pulse Rate (adult) 79 bpm (60 - 100) O2 Sat by Pulse Oximetry 94 % (90 - 100) Oxygen Delivery Method Room Air Blood Pressure 118/65 mm Hg Blood Pressure Source Automatic Cuff Height 6 ft 0 in Weight 204 lb Body Mass Index 27.0 kg/m^2 Results [...] 6:50pm 49 U/L N 30-110 Anion Gap February 03, 2014 12:30pm 9 MEQ/L N 5-15 COMMENT WILL CALL WHEN PATIENT HERE Arterial Blood Base Excess February 17, 2013 [...] 6:50pm 20 U/L N 17-59 BUN/Creatinine Ratio February 03, 2014 12:30pm 23 RATIO N 6-26 COMMENT WILL CALL WHEN PATIENT HERE Basophils # (Auto) February 03, 2014 12:30pm 0.1 T/MM3 N 0-0.2 COMMENT WILL CALL WHEN PATIENT HERE Basophils (%) (Auto) February 03, 2014 12:30pm 0.5 % N 0-2 COMMENT WILL CALL WHEN PATIENT HERE Blood Urea Nitrogen February 03, 2014 12:30pm 14.0 MG/DL N 9-20 COMMENT WILL CALL WHEN PATIENT HERE C. difficile Toxin B Gene (PCR) October 13, 2013 1:49pm Positive H - Has specimen been collected/obtained? Y Calcium Level February 03, 2014 12:30pm 9.1 MG/DL N 8.4-10.2 COMMENT WILL CALL WHEN PATIENT HERE Calculated Osmolality February 03, 2014 12:30pm 273 MOSM/KG N 261-280 COMMENT WILL CALL WHEN PATIENT HERE Carbon Dioxide Level February 03, 2014 12:30pm 26 MEQ/L N 22-30 COMMENT WILL CALL WHEN PATIENT HERE Chemistry Specimen Hemolysis February 03, 2014 12:30pm < 15 0-25 0-25: No Hemolysis.26-70: Slight [...] decrease Phenytoin. Recommend specimen recollection. Chloride Level February 03, 2014 12:30pm 107 MEQ/L N 98-107 COMMENT WILL CALL WHEN PATIENT HERE Conjugated Bilirubin November 07, 2011 2:16am 0.00 MG/DL N 0.00-0.30 Creatinine February 03, 2014 12:30pm 0.6 MG/DL L 0.8-1.5 COMMENT WILL CALL WHEN PATIENT HERE D-Dimer December 15, 2013 6:50pm < 150 NG/ML 0-230 <224 NG/ML= PRESUMPTIVE NEGATIVE FOR PE OR DVT>224 NG/ML=ADDITIONAL EVALUATION FOR PE OR DVT RECOMMENDED Eosinophils # (Auto) February 03, 2014 12:30pm 0.2 T/MM3 N 0-0.5 COMMENT WILL CALL WHEN PATIENT HERE Eosinophils # (Manual) October 13, 2013 2:02pm 0.7 T/MM3 H 0-0.5 Eosinophils % (Manual) October 13, 2013 2:02pm 5.0 % H 0-4 Eosinophils (%) (Auto) February 03, 2014 12:30pm 1.9 % N 0-4 COMMENT WILL CALL WHEN PATIENT HERE Globulin December 15, 2013 6:50pm 2.8 G/DL N 2.4-3.6 Glomerular Filtration Rate Calc February 03, 2014 12:30pm 144 - COMMENT WILL CALL WHEN PATIENT HERE Glucometer February 03, 2014 12:05pm 96 mg/dL N 75-110 Glucose Level February 03, 2014 12:30pm 82 MG/DL N 75-110 COMMENT WILL CALL WHEN PATIENT HERE Hematocrit February 03, 2014 12:30pm 40.0 % L 41-53 COMMENT WILL CALL WHEN PATIENT HERE Hemoglobin February 03, 2014 12:30pm 13.3 GM/DL L 13.5-17.5 COMMENT WILL CALL WHEN PATIENT HERE Hemoglobin A1c November 07, 2011 7:00am 11.0 % H 6-7 <6.0 NON-DIABETIC RANGE6.0-7.0 ADA THERAPEUTIC RANGE >7.0 ACTION SUGGESTED Icterus Index February 03, 2014 12:30pm < 2 0-7 COMMENT WILL CALL WHEN PATIENT HERE Immature Granulocyte # (Auto) February 03, 2014 12:30pm 0.06 T/MM3 H 0.00- 0.03 COMMENT WILL CALL WHEN PATIENT HERE Immature Granulocyte % (Auto) February 03, 2014 12:30pm 0.6 % H 0.0-0.5 COMMENT WILL CALL WHEN PATIENT HERE Lipase December 15, 2013 6:50pm 59 U/L N 23-300 Lymphocytes # (Auto) February 03, 2014 12:30pm 2.9 T/MM3 N 1-4.8 COMMENT WILL CALL WHEN PATIENT HERE Lymphocytes # (Manual) October 13, 2013 2:02pm 2.4 T/MM3 N 1-4.8 Lymphocytes % (Manual) October 13, 2013 2:02pm 18.0 % L 23-45 Lymphocytes (%) (Auto) February 03, 2014 12:30pm 30.5 % N 23-45 COMMENT WILL CALL WHEN PATIENT HERE Magnesium Level December 15, 2013 6:50pm 1.9 MG/DL N 1.6-2.3 Mean Corpuscular Hemoglobin February 03, 2014 12:30pm 23.7 UUG L 26-34 COMMENT WILL CALL WHEN PATIENT HERE Mean Corpuscular Hemoglobin Concent February 03, 2014 12:30pm 33.3 GM/DL N 31-37 COMMENT WILL CALL WHEN PATIENT HERE Mean Corpuscular Volume February 03, 2014 12:30pm 71.3 UM3 L 80-100 COMMENT WILL CALL WHEN PATIENT HERE Mean Platelet Volume February 03, 2014 12:30pm 10.7 UM3 N 9.4-12.4 COMMENT WILL CALL WHEN PATIENT HERE Monocytes # (Auto) February 03, 2014 12:30pm 0.8 T/MM3 N 0-0.8 COMMENT WILL CALL WHEN PATIENT HERE Monocytes # (Manual) October 13, 2013 2:02pm 0.8 T/MM3 N 0-0.8 Monocytes % (Manual) October 13, 2013 2:02pm 6.0 % N 0-9.0 Monocytes (%) (Auto) February 03, 2014 12:30pm 8.5 % N 0-9.0 COMMENT WILL CALL WHEN PATIENT HERE PG-Yrk-A-Type Natriuretic Peptide December 15, 2013 6:50pm 41 PG/ML N 0-175 Rule in cut points: <50 years old=450; 50-75 years old=900; >75 years old=1800; When utilizing ProBNP rule-in cut points, adjustment for impaired renal function is typically not required. Neutrophils # (Auto) February 03, 2014 12:30pm 5.6 T/MM3 N 1.8-7.7 COMMENT WILL CALL WHEN PATIENT HERE Neutrophils # (Manual) October 13, 2013 2:02pm 9.4 T/MM3 H 1.8-7.7 Neutrophils % (Manual) October 13, 2013 2:02pm 71.0 % H 33-66 Neutrophils (%) (Auto) February 03, 2014 12:30pm 58.0 % N 33-66 COMMENT WILL CALL WHEN PATIENT HERE Oxygen Delivery Method (LAB) February 17, 2013 1:30pm Nasal cannula,liters - Platelet Count February 03, 2014 12:30pm 243 T/MM3 N 130-400 COMMENT WILL CALL WHEN PATIENT HERE Potassium Level February 03, 2014 12:30pm 3.8 MEQ/L N 3.6-5 COMMENT WILL CALL WHEN PATIENT HERE Prothromb Time International Ratio December 15, 2013 6:50pm 0.81 N 0.81- 1.09 THERAPUTIC RANGE=2.00-3.00 FOR ANTI-THROMBOSIS THERAPUTIC RANGE=2.50- 3.50 FOR IMPLANTED VALVE RDW Standard Deviation February 03, 2014 12:30pm 45.1 FL N 36.9-50.2 COMMENT WILL CALL WHEN PATIENT HERE Red Blood Count February 03, 2014 12:30pm 5.61 M/MM3 N 4.50-5.90 COMMENT WILL CALL WHEN PATIENT HERE Sodium Level February 03, 2014 12:30pm 142 MEQ/L N 134-144 COMMENT WILL CALL WHEN PATIENT HERE Stool for White Cells October 13, 2013 1:49pm Positive - Has specimen been collected/obtained? Y Thyroid Stimulating Hormone (TSH) December 15, 2013 6:50pm 2.07 MIU/L N 0.47 -4.68 Total Bilirubin December 15, 2013 6:50pm 0.10 MG/DL L 0.20-1.30 Total Protein December 15, 2013 6:50pm 6.6 G/DL N 6.3-8.2 Troponin I December 16, 2013 4:40am < 0.012 ng/ml 0-0.12 Turbidity February 03, 2014 12:30pm < 20 0-20 COMMENT WILL CALL WHEN PATIENT HERE Unconjugated Bilirubin November 07, 2011 2:16am 0.10 [...] Has specimen been collected/obtained? Y Urine Specific [place] December 15, 2013 7:05pm 1.025 - Has [...] use blood in lab White Blood Count February 03, 2014 12:30pm 9.6 T/MM3 N 4.5-11.0 COMMENT WILL CALL WHEN PATIENT HERE Blood Culture Blood November 07, 2011 3:40am NO GROWTH AFTER 5 DAYS Stool Culture Stool October 13, 2013 1:49pm Ova and Parasites Stool October 13, 2013 2:45pm Name: ISRAEL WATTS Unit #: [id number] : [id number] Sex: M Loc / Svc: [facility] DOS: 12/31/13 Signed Report #: [id number] DIAGNOSTIC IMAGING REPORT TYPE OF EXAM: MRI BRAIN W/WO CONTRAST Dictated By: LENORE FLORES MD INDICATION: ITS.REASON: 780.4 DIZZINESS;434.91 BRAIN INFARCTION;V12.54 HX BRAIN INFARC MRI BRAIN W/WO CONTRAST: Comparisons: Head CT dated December 15, 2013 Technique: Multiplanar, multisequence, MR imaging of the head with and without contrast was acquired. Contrast: 9 mL of Gadavist FINDINGS: The ventricles are of normal size, shape, and contour for the patient 's age. The brain stem, cerebellum, and cerebral hemispheres have a normal morphologic appearance as well as MR signal intensity on all pulse sequences. No area of abnormal signal intensity corresponds to possible low-attenuation lesion seen by CT. Following intravenous administration of contrast, no areas of abnormal enhancement are evident. There are no areas of restricted diffusion to suggest an acute infarct. There is no evidence of an intracranial mass lesion, intracranial hemorrhage, or hydrocephalus. The visualized portions of the orbits, calvarium, paranasal sinuses, and skull base demonstrate no significant abnormality. IMPRESSION: Normal exam. No evidence of infarct or brain lesion. . Procedures Procedure Status Date Provider(s) Colonoscopy completed 01/14/14 LORENZO QUILES MD Encounters Encounter Location Date/Time Departed Clinic [facility] 02/03/14 11:56am Registered Clinic [facility] 01/14/14 7:52am Registered [facility] 12/31/13 8:09am Discharged Inpatient [facility] 12/15/13 8:30pm Discharged Recurring [facility] 11/05/13 8:25am
--- OUTSIDE RECORDS SUMMARY | 2016-11-12 14:43 | XMS REPORT | Continuity of Care Document ---
Author Author [facility] Organization [facility] Address Unknown Phone Unavailable Support Name Relationship Address Phone MAYO CARPENTER MD Caregiver [address] [place] [address] PHEONIX RUSSELL II, MD Caregiver [address] [facility] [address] [place] [phone] NYLA WATTS Next Of Kin [address] [place] [address] CP Insurance Providers Payer Name Policy Number Subscriber Name Relationship [facility] [id number] Nyla Watts 01 Spouse Advance Directives Directive Response Recorded Date/Time Advanced Directives Type None 12/15/13 9:23pm Ordered Resuscitation Status Full Code 12/15/13 7:47pm Chief Complaint and Reason for Visit Chief Complaint Neuro Symptoms/Deficits Reason for Visit Numbness on right side [id number] Problems Medical Problems Problem Onset Date Status [...] Active Numbness on right side Unknown Active Viral syndrome Unknown Active Bacterial gastroenteritis Unknown Active Bacterial gastroenteritis Unknown Active Medications Medication Dose Route Sig [...] Mg PO BEDTIME 02/17/13 07/20/14 Discontinued Fish Oil/[place]-3 Fatty Acids 4 Cap PO BEDTIME 02/17/13 Active Insulin Glulisine 20 U SQ THREE TIMES A DAY 02/17/13 Active Insulin Detemir 8 U SQ BEDTIME 12/15/13 Active Atorvastatin Calcium 40 Mg PO BEDTIME 12/15/13 Active Citalopram Hydrobromide 1 Tab PO BEDTIME 02/03/14 Active Omeprazole 20 Mg PO BEDTIME 02/03/14 07/20/14 Discontinued Insulin Detemir 8 Unit SQ DAILY MORNING INSULIN 02/03/14 Active Meclizine HCl 25 Mg PO TWICE A DAY 02/03/14 Active Aspirin 81 Mg PO DAILY For CAD 30 Days 07/20/14 Active Clopidogrel Bisulfate 75 Mg PO DAILY For CVA 30 Days 07/20/14 Active Pantoprazole Sodium 40 Mg PO BEFORE BREAKFAST 30 Qty Take 1 tablet, by mouth, one time a day before breakfast. 07/20/14 Active Ondansetron 4 Mg PO Q6H/0300,0900,1500,2100 PRN NAUSEA &/OR VOMITING 15 Qty 07/29/14 Active Ciprofloxacin HCl 1 Tab PO Q12H 20 Qty 07/29/14 Active Social History Social History Problem Response Recorded Date/Time Hx Substance Use No 07/29/2014 10:40am Hx Alcohol Use No 07/29/2014 10:40am Has the pt used tobacco in the [...] is ok for you to drive to [place] for class tomorrow 07/21 if you decide to not cancel your class. Follow Up Appointments: APPOINTMENT WITH DR. TAVARES ON JUL 21 AT 4:00. With Dr Russell 07/26 at 9:[address] [facility] Patient Instructions: Stop Smoking STOP BY THE CLINIC AFTER DISCHARGE TODAY FOR [facility]ANTIX SAMPLES Condition at time of discharge: Good Notify Physician If: worsening headache, temp > 100 General Information: n/a Condition at time of discharge: Fair Plan of Care Discharge Date 07/20/14 4:20pm Disposition 02 TO OBS NM Condition at Discharge Improved Instructions/Education Provided Ischemic Stroke Prescriptions See Medications Section Referrals PHOENIX RUSSELL II, MD Functional Status Query Response Date Recorded Physical Hygiene Self July 29, 2014 10:40am Disabilities None December 16, 2013 2:56pm Devices Used None December 16, 2013 2:56pm Dressing Self December 16, 2013 2:56pm Ambulation Self December 16, 2013 2:56pm Diet Self December 16, 2013 2:56pm Mental Status Alert Oriented December 16, 2013 2:56pm Disabilities None December 16, 2013 2:56pm Devices Used None December 16, 2013 2:56pm Physical Hygiene Self July 29, 2014 10:40am Dressing Self December 16, 2013 2:56pm Ambulation Self December 16, 2013 2:56pm Diet Self December 16, 2013 2:56pm Allergies, Adverse Reactions, Alerts Allergen Type Severity Reaction Status Last Updated No Known Drug Allergies Allergy Unknown Active 07/29/14 Immunizations Name Given Type Hx Influenza Vaccination No Historical Hx Pneumococcal Vaccination No Historical Hx Tetanus, Diptheria, Pertussis No Historical Hx Influenza Vaccination No Historical Hx Tetanus, Diptheria, Pertussis No Historical Vital Signs Acute Vital Signs Vital Response Date/Time Temperature (Fahrenheit) 98.5 deg F (96.8 - 99.1) Temperature (Calculated Celsius) 36.60578 degrees C (36.0 - 37.3) Pulse Rate (adult) 98 bpm (60 - 100) Respiratory Rate 16 breaths/min (10 - 20) O2 Sat by Pulse Oximetry 96 % (90 - 100) Blood Pressure 108/53 mm Hg Height 6 ft 0 in Weight 210 lb Body Mass Index 28.0 kg/m^2 Results Test Source Date Result Interp. Ref. Range Comments Acetone Level December 15, 2013 6:50pm Negative - Activated Partial Thromboplast Time July 19, 2014 1:02pm 28.8 SEC N 24-36 Alanine Aminotransferase (ALT/SGPT) July 29, 2014 11:04am 48 U/L N 21 -72 Albumin July 29, 2014 11:04am 3.5 G/DL N 3.5-5.0 Albumin/Globulin Ratio July 29, 2014 11:04am 1.3 RATIO N 1.1-2.2 Alkaline Phosphatase July 29, 2014 11:04am 104 U/L N 38-126 Amylase Level December 15, 2013 6:50pm 49 U/L N 30-110 Anion Gap July 29, 2014 11:04am 7 MEQ/L N 5-15 Arterial Blood Base [...] 7.410 N 7.350-7.450 Aspartate Amino Transf (AST/SGOT) July 29, 2014 11:04am 30 U/L N 17- 59 BUN/Creatinine Ratio July 29, 2014 11:04am 35 RATIO H 6-26 Band Neutrophils # July 29, 2014 11:04am 2.6 T/MM3 - Band Neutrophils % July 29, 2014 11:04am 19.0 % H 0-6 Basophils # (Auto) July 19, 2014 1:03pm 0.1 T/MM3 N 0-0.2 Basophils # (Manual) July 29, 2014 11:04am 0.1 T/MM3 N 0-0.2 Basophils % (Manual) July 29, 2014 11:04am 1.0 % N 0-2 Basophils (%) (Auto) July 19, 2014 1:03pm 1.0 % N 0-2 Blood Urea Nitrogen July 29, 2014 11:04am 21.0 MG/DL H 9-20 Calcium Level July 29, 2014 11:04am 9.4 MG/DL N 8.4-10.2 Calculated Osmolality July 29, 2014 11:04am 277 MOSM/KG N 261-280 Carbon Dioxide Level July 29, 2014 11:04am 28 MEQ/L N 22-30 Chloride Level July 29, 2014 11:04am 107 MEQ/L N 98-107 Conjugated Bilirubin November 07, 2011 2:16am 0.00 MG/DL N 0.00-0.30 Creatinine July 29, 2014 11:04am 0.6 MG/DL L 0.8-1.5 D-Dimer December 15, 2013 6:50pm < 150 NG/ML 0-230 <224 NG/ML= PRESUMPTIVE NEGATIVE FOR PE OR DVT>224 NG/ML=ADDITIONAL EVALUATION FOR PE OR DVT RECOMMENDED Eosinophils # (Auto) July 19, 2014 1:03pm 0.1 T/MM3 N 0-0.5 Eosinophils # (Manual) July 29, 2014 11:04am 0.3 T/MM3 N 0-0.5 Eosinophils % (Manual) July 29, 2014 11:04am 2.0 % N 0-4 Eosinophils (%) (Auto) July 19, 2014 1:03pm 1.0 % N 0-4 Globulin July 29, 2014 11:04am 2.8 G/DL N 2.4-3.6 Glucose Level July 29, 2014 11:04am 120 MG/DL H 75-110 Hematocrit July 29, 2014 11:04am 40.7 % L 41-53 Hemoglobin July 29, 2014 11:04am 13.1 GM/DL L 13.5-17.5 Hemoglobin A1c November 07, 2011 7:00am 11.0 % H 6-7 <6.0 NON-DIABETIC RANGE6.0-7.0 ADA THERAPEUTIC RANGE >7.0 ACTION SUGGESTED Lipase December 15, 2013 6:50pm 59 U/L N 23-300 Lymphocytes # (Auto) July 19, 2014 1:03pm 2.9 T/MM3 N 1-4.8 Lymphocytes # (Manual) July 29, 2014 11:04am 0.8 T/MM3 L 1-4.8 Lymphocytes % (Manual) July 29, 2014 11:04am 6.0 % L 23-45 Lymphocytes (%) (Auto) July 19, 2014 1:03pm 26.0 % N 23-45 Magnesium Level December 15, 2013 6:50pm 1.9 MG/DL N 1.6-2.3 Mean Corpuscular Hemoglobin July 29, 2014 11:04am 23.4 UUG L 26-34 Mean Corpuscular Hemoglobin Concent July 29, 2014 11:04am 32.2 GM/DL N 31-37 Mean Corpuscular Volume July 29, 2014 11:04am 72.5 UM3 L 80-100 Mean Platelet Volume July 29, 2014 11:04am 10.2 UM3 N 9.4-12.4 Monocytes # (Auto) July 19, 2014 1:03pm 0.7 T/MM3 N 0-0.8 Monocytes # (Manual) July 29, 2014 11:04am 0.8 T/MM3 N 0-0.8 Monocytes % (Manual) July 29, 2014 11:04am 6.0 % N 0-9.0 Monocytes (%) (Auto) July 19, 2014 1:03pm 6.7 % N 0-9.0 Neutrophils # (Auto) July 19, 2014 1:03pm 7.2 T/MM3 N 1.8-7.7 Neutrophils # (Manual) July 29, 2014 11:04am 9.1 T/MM3 H 1.8-7.7 Neutrophils % (Manual) July 29, 2014 11:04am 66.0 % N 33-66 Neutrophils (%) (Auto) July 19, 2014 1:03pm 65.0 % N 33-66 Platelet Count July 29, 2014 11:04am 253 T/MM3 N 130-400 Potassium Level July 29, 2014 11:04am 4.4 MEQ/L N 3.6-5 Prothromb Time International Ratio July 19, 2014 1:02pm 0.94 N 0.81- 1.09 THERAPUTIC RANGE=2.00-3.00 FOR ANTI-THROMBOSIS THERAPUTIC RANGE=2.50- 3.50 FOR IMPLANTED VALVE RDW Standard Deviation July 29, 2014 11:04am 42.3 FL N 36.9-50.2 Red Blood Count July 29, 2014 11:04am 5.61 M/MM3 N 4.50-5.90 Sodium Level July 29, 2014 11:04am 142 MEQ/L N 134-144 Stool for White Cells October 13, 2013 1:49pm Positive - Has specimen been collected/obtained? Y Thyroid Stimulating Hormone (TSH) July 29, 2014 11:04am 1.56 MIU/L N 0.47-4.68 Total Bilirubin July 29, 2014 11:04am 0.50 MG/DL N 0.20-1.30 Total Protein July 29, 2014 11:04am 6.3 G/DL N 6.3-8.2 Troponin I July 29, 2014 11:04am < 0.012 ng/ml 0-0.12 Unconjugated Bilirubin November 07, 2011 2:16am 0.10 MG/DL N 0.00-1.10 Urine Bilirubin July 29, 2014 11:47am Negative - Has specimen been collected/obtained? Y Urine Blood July 29, 2014 11:47am Negative - Has specimen been collected/obtained? Y Urine Collection Type July 29, 2014 11:47am Voided-not cc-midstr - Has specimen been collected/obtained? Y Urine Color July 29, 2014 11:47am Yellow - Has specimen been collected/obtained? Y Urine Glucose (UA) July 29, 2014 11:47am Trace H - Has specimen been collected/obtained? Y Urine Ketones July 29, 2014 11:47am Negative - Has specimen been collected/obtained? Y Urine Leukocyte Esterase July 29, 2014 11:47am Negative - Has specimen been collected/obtained? Y Urine Nitrite July 29, 2014 11:47am Negative - Has specimen been collected/obtained? Y Urine Protein July 29, 2014 11:47am Negative - Has specimen been collected/obtained? Y Urine Specific [place] July 29, 2014 11:47am 1.015 - Has specimen been collected/obtained? Y Urine Turbidity July 29, 2014 11:47am Clear - Has specimen been collected/obtained? Y Urine Urobilinogen July 29, 2014 11:47am 0.2 EU/DL - Has specimen been collected/obtained? Y Urine pH July 29, 2014 11:47am 8.0 - Has specimen been collected/ obtained? Y Vitamin B12 Level November 07, 2011 7:00am 845 PG/ML N 239-931 COMMENT may use blood in lab White Blood Count July 29, 2014 11:04am 13.8 T/MM3 H 4.5-11.0 Chemistry Specimen Hemolysis July 29, 2014 11:04am < 15 0-25 0-25 : No Hemolysis.26-70: Slight Hemolysis - can falsely [...] 2013 1:30pm Nasal cannula,liters - Urinalysis Comment July 29, 2014 11:47am Microscopic not ind. - Has specimen been collected/obtained? Y Glucometer July 29, 2014 10:08am 155 mg/dL H 75-110 Turbidity July 29, 2014 11:04am < 20 0-20 Glomerular Filtration Rate Calc July 29, 2014 11:04am 144 - Immature Granulocyte # (Auto) July 19, 2014 1:03pm 0.03 T/MM3 N 0.00- 0.03 Immature Granulocyte % (Auto) July 19, 2014 1:03pm 0.3 % N 0.0-0.5 Arterial Blood pO2 at Patient Temp February 17, 2013 1:30pm 76 MMHG L 80- 100 Icterus Index July 29, 2014 11:04am < 2 0-7 QU-Wzt-[id number]-Type Natriuretic Peptide December 15, 2013 6:50pm 41 [...] 2013 2:45pm Name: ISRAEL WATTS Unit #: [id number] : [id number] Sex: M Loc / Svc: ED DOS: 07/29/14 Signed Report #: [id number] DIAGNOSTIC IMAGING REPORT TYPE OF EXAM: CT ABD/PELVIS W/CONTRAST ONLY Dictated By: LENORE FLORES MD INDICATION: ITS.REASON: abd pain, elevated WBC with left shift CT ABD/PELVIS W/CONTRAST ONLY: Comparison: None Technique: Axial CT images were performed through the abdomen and pelvis after the administration of intravenous contrast. Contrast: Omnipaque 300 100 mL FINDINGS: Abdomen: The lung bases show mild atelectasis. There is no evidence of pleural effusion. The liver is homogeneous in appearance without evidence of enhancing lesion or mass. There is no intra or extrahepatic biliary ductal dilatation. Tiny probable left renal cyst. Atrophy of the pancreas. The spleen, bilateral adrenals and kidneys are otherwise within normal limits. Fluid-filled loops of small bowel are seen in the abdomen. No abnormally dilated loops of small bowel in the abdomen. There is no free fluid or intra-abdominal mass seen. No aggressive lytic or blastic bony lesions are noted. Pelvis: There are fluid-filled loops of small bowel in the pelvis as well. Some of these are borderline enlarged measuring up to 2.9 cm in diameter. No evidence of a transition point. There is no free pelvic fluid. There is no inguinal or pelvic lymphadenopathy. No gross lytic or blastic bony lesions are identified. The appendix is not seen and reportedly surgically absent. IMPRESSION: Fluid-filled mildly prominent loops of small bowel without evidence of acute obstruction or clear transition point could represent a gastroenteritis. Otherwise no acute disease process seen. . Procedures Procedure Status Date Provider(s) ROUTINE VENIPUNCTURE completed 07/19/14 CT HEAD/BRAIN W/O DYE completed 07/19/14 MRI BRAIN STEM W/O & W/DYE completed 07/19/14 COMPREHEN METABOLIC PANEL completed 07/19/14 URINALYSIS AUTO W/O SCOPE completed 07/19/14 REAGENT STRIP/BLOOD GLUCOSE completed 07/19/14 REAGENT STRIP/BLOOD GLUCOSE completed 07/19/14 REAGENT STRIP/BLOOD GLUCOSE completed 07/19/14 REAGENT STRIP/BLOOD GLUCOSE completed 07/19/14 REAGENT STRIP/BLOOD GLUCOSE completed 07/19/14 ASSAY OF TROPONIN QUANT completed 07/19/14 COMPLETE CBC W/AUTO DIFF WBC completed 07/19/14 PROTHROMBIN TIME completed 07/19/14 THROMBOPLASTIN TIME PARTIAL completed 07/19/14 ELECTROCARDIOGRAM TRACING completed 07/19/14 EXTRACRANIAL BILAT STUDY completed 07/19/14 THER/PROPH/DIAG INJ SC/IM completed 07/19/14 THER/PROPH/DIAG INJ SC/IM completed 07/19/14 INITIAL OBSERVATION CARE completed 07/19/14 INITIAL OBSERVATION CARE completed 07/19/14 INITIAL OBSERVATION CARE completed 07/19/14 INITIAL OBSERVATION CARE completed 07/19/14 EMERGENCY DEPT VISIT completed 07/19/14 GADAVIST 10ML SDV - Contrast,Gadavist 10ml completed 07/19/14"INJECTION, PANTOPRAZOLE SODIUM, PER VIAL" completed 07/19/14"INJECTION, PANTOPRAZOLE SODIUM, PER VIAL" completed 07/19/14"INJECTION, INSULIN, PER 5 UNITS" completed 07/19/14"INJECTION, INSULIN, PER 5 UNITS" completed 07/19/14"INJECTION, INSULIN, PER 5 UNITS" completed 07/19/14"INJECTION, INSULIN, PER 5 UNITS" completed 07/19/14"INJECTION, INSULIN, PER 5 UNITS" completed 07/19/14 Encounters Encounter Location Date/Time Departed Emergency Room [facility] 07/29/14 9:51am Registered Clinic [facility] 07/29/14 6:33am Discharged Inpatient [facility] 07/19/14 3:59pm Recent Diagnosis
--- OUTSIDE RECORDS SUMMARY | 2016-11-12 14:43 | XMS REPORT | Continuity of Care Document ---
Demographics Preferred Language Unknown Marital Status Unknown Church Affiliation Unknown Race Unknown Ethnic Group Unknown Author Author [facility] Organization [facility] Address Unknown Phone Unavailable Allergies Active Description Code Type Severity Reaction Onset Reported/Identified Relationship to Patient Clinical Status Yes No Known Contrast Allergies Drug Allergy Unknown N/A 08/31/2004 Yes No Known Drug Allergies Drug Allergy Unknown N/A 08/31/2004 Yes No Known Food Allergies Drug Allergy Unknown N/A 08/31/2004 Yes NO KNOWN LATEX ALLERGY/SENSITI Drug Allergy Unknown N/A 08/31/2004 Yes No Known Drug Intolerances Drug Allergy Unknown N/A 01/01/2009 Yes No Known Drug Allergies No Known Drug Allergies Drug Allergy Unknown . 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 NELLY WOLFF MD 09/15/2015 NELLY WOLFF MD Z79.4 senior care (current) use of insulin NELLY WOFLF MD 09/15/2015 NELLY WOLFF MD A41.9 Sepsis, unspecified organism NELLY WLOFF MD 09/15/2015 NELLY WOLFF MD B95.1 Streptococcus, group B, as the cause of diseases classified elsewhere NELLY WOLFF MD 09/15/2015 NELLY WOLFF MD B95.4 Other streptococcus as the cause of diseases classified elsewhere NELLY WOLFF MD 09/15/2015 NELLY WOLFF MD E11.42 Type 2 diabetes mellitus with diabetic polyneuropathy NELLY WOLFF MD 09/15/2015 NELLY WOLFF MD E11.621 Type 2 diabetes mellitus with foot ulcer NELLY WOLFF MD 09/15/2015 NELLY WOLFF MD 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 NELLY WOLFF MD 09/15/2015 NELLY WOLFF MD M86.671 Other chronic osteomyelitis, right ankle and foot NELLY WOLFF MD 09/15/2015 NELLY WOLFF MD 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 NELLY WOLFF MD 09/26/2015 NELLY WOLFF MD B95.1 Streptococcus, group B, as the cause of diseases classified elsewhere NELLY WOLFF MD 09/26/2015 NELLY WOLFF MD B95.4 Other streptococcus as the cause of diseases classified elsewhere NELLY WOLFF MD 09/26/2015 NELLY WOLFF MD E11.42 Type 2 diabetes mellitus with diabetic polyneuropathy NELLY WOLFF MD 09/26/2015 NELLY WOLFF MD M86.671 Other chronic osteomyelitis, right ankle and foot NELLY WOLFF MD 09/26/2015 NELLY WOLFF MD Z79.2 senior care (current) use of antibiotics NELLY WOLFF MD 09/26/2015 NELLY WOLFF MD Z79.4 senior care (current) use of insulin NELLY WOLFF MD Procedures Code [place] [address] Office or other outpatient visit for the evaluation and management of an established patient, which NELLY WOLFF MD 09/22/2015 12070 Office or other outpatient visit for the evaluation and management of an established patient, which NELLY WOLFF MD 09/22/2015 29810 Office or other outpatient visit for the evaluation and management of an established patient, which NELLY WOLFF MD 09/26/2015 19262 Office or other outpatient visit for the evaluation and management of an established patient, which NELLY WOLFF MD 09/26/2015 72378 Office or other outpatient visit for the evaluation and management of an established patient, which NELLY WOLFF MD 10/05/2015 Results Test Result Range BETA HYDROXYBUTYRATE - 10/09/13 00:00 BETA HYDROXYBUTYRATE 0.3 mmol/L < 0.6 GLUCOSE (POC) - 10/09/13 16:39 GLUCOSE (POC) 205 mg/dL 70-99 LACTIC ACID - 10/09/13 18:45 LACTIC ACID 1.1 mmol/L 0.5-2.2 URINALYSIS, ROUTINE - 10/09/13 18:47 UA LEUKOCYTE ESTERASE DIPSTICK NEGATIVE NEGATIVE UA NITRITE DIPSTICK NEGATIVE NEGATIVE UA PROTEIN DIPSTICK NEGATIVE NEGATIVE UA GLUCOSE DIPSTICK 1+ NEGATIVE UA KETONE DIPSTICK NEGATIVE NEGATIVE UA UROBILINOGEN DIPSTICK NORMAL NORMAL UA BILIRUBIN DIPSTICK NEGATIVE NEGATIVE UA BLOOD DIPSTICK NEGATIVE NEGATIVE UA COMMENT UA SPECIFIC GRAVITY 1.015 1.015-1.025 UR PH 7.0 5.0-7.0 UA MICROSCOPIC - 10/09/13 18:47 UA AMORPHOUS SEDIMENT 3+ UA EPITHELIAL CELLS 3+ epi/hpf 0 - 1+ UA MUCUS 4+ NEG TO 1+ UA RBC 0-3 rbc/hpf 0 - 3 UA VOLUME FOR EXAM 12.0 mL (12mL STD) UA WBC 0-1 wbc/hpf 0 - 5 VENOUS BLOOD GAS - 10/09/13 18:50 VBG BASE EXCESS 0.3 mEq/L -3.0-3.0 VBG BICARBONATE 24.5 meq/L 21-30 VBG PCO2 38 mm Hg 41-51 VBG PH 7.43 7.33-7.43 VBG PO2 55 mm Hg 35-40 VBG O2 SATURATION 91 % 65-75 CBC W/DIFF - 10/09/13 18:50 EOSINOPHIL # 0.2 k/cumm 0.1-0.5 EOSINOPHIL % 2 % 2-4 GRANULOCYTE # 6.1 k/cumm 2.0-9.0 GRANULOCYTE % 60 % 50-75 LYMPHOCYTE # 2.8 k/cumm 1.0-4.0 LYMPHOCYTE % 28 % 20-30 MEAN CELL HGB 23.3 pg 27.0-33.0 MEAN CELL HGB CONCENTRATION 32.6 g/dL 32.0-37.0 MEAN CELL VOLUME 71.5 fl 80.0-100.0 MONOCYTE # 1.0 k/cumm 0.1-1.0 MONOCYTE % 10 % 4-6 RED BLOOD CELL 5.79 m/cumm 4.00-6.00 RED CELL DISTRIBUTION WIDTH 17.9 % 11.0- 15.6 WHITE BLOOD CELL 10.2 k/cumm 5.0-10.0 HEMOGLOBIN 13.5 gm/dL 14.0-18.0 HEMATOCRIT 41.4 % 40.0-54.0 PLATELET COUNT 267 k/cumm 150-400 HEPATIC FUNCTION PANEL - 10/09/13 18:50 BILI UNCONJUGATED 0.1 mg/dL 0.0-0.7 AST/SGOT 28 Units/L 10-37 ALT/SGPT 33 Units/L < 66 TOTAL PROTEIN 6.2 gm/dL 6.4-8.2 ALBUMIN 2.9 gm/dL 3.4-5.0 BILI TOTAL 0.2 mg/dL 0.0-1.0 ALKALINE PHOSPHATASE TOTAL 122 IU/L 45- 117 BILI CONJUGATED < 0.1 mg/dL 0.0-0.3 LIPASE - 10/09/13 18:50 LIPASE 58 Units/L 73-393 CHEM/HEM PROFILE-BEDSIDE - 10/09/13 18:59 POTASSIUM 4.2 mmol/L 3.5-5.3 METHOD Bedside ANION GAP 9 mmol/L 10-20 METHOD Bedside GLUCOSE 222 mg/dL 70-99 BLOOD UREA NITROGEN 24 mg/dL 7-20 CREATININE 1.4 mg/dL 0.8-1.3 HEMOGLOBIN 13.9 gm/dL 14.0-18.0 HEMATOCRIT 41.0 % 40.0-54.0 SODIUM 138 mmol/L 135-148 CHLORIDE 109 mmol/L 98-110 CARBON DIOXIDE 26 mmol/L 21-32 CALCIUM IONIZED 4.7 mg/dL 4.5-5.3 Encounters ACCT No. Visit Date/Time Discharge Status Pt. Type Provider Facility Loc./Unit Complaint [id number] 09/26/2015 14:03:02 [facility] Outpatient MARIELLA AYERS, NELLY To
--- OUTSIDE RECORDS SUMMARY | 2016-11-12 14:44 | XMS REPORT ---
Author Author [place]/[facility], [facility] - Organization Unknown Address Unknown Phone Unavailable Allergies, Adverse Reactions, Alerts * No Latex Allergy. * No IV Contrast Allergy. * No Known Drug Allergies. Problems * Diabetes Mellitus, Type 1* Status:Active. * Fall Risk* Status:Active. * Intracranial Adaptive Capacity Low Level* Status:Resolved. * Knowledge Low Level* Status:Active. * Nausea & Vomiting* Status:Resolved. Procedures No relevant procedures performed. Medication It is the responsibility of the patient or patient electroplating sales representative to confirm the list of medications with either the patient's personal care provider or the patient's follow-up care provider to ensure the patient has an appropriate list of medications to take at home. Discharge medications* insulin detemir (Levemir) 100 unit/mL Solution, Ordered By: Edilberto Arredondo November Directions: 28 units subcutaneous daily at bedtime * insulin glulisine (Apidra) 100 unit/mL Solution, Ordered By: Edilberto Turner Directions: 20 unit subcutaneous daily with lunch * citalopram 40 mg Tablet, Ordered By: Edilberto Arredondo November Directions: 0.5 tablet oral daily at bedtime * omeprazole 20 mg capsule,delayed release(/EC), Ordered By: Edilberto Arredondo November Directions: 1 capsule oral daily at bedtime * ranitidine HCl 150 mg Tablet, Ordered By: Edilberto Arredondo November Directions: 1 tablet oral daily at bedtime * fenofibrate nanocrystallized 160 mg Tablet, Ordered By: Edilberto Arredondo November Directions: 1 tablet oral daily at bedtime * aspirin 325 mg Tablet, Ordered By: Edilberto Arredondo November Directions: 1 tablet oral daily at bedtime * Fish Oil 4000mg daily at bedtime. Last dose taken at home: 02/17/13 PM * insulin glulisine (Apidra) 100 unit/mL Solution, Ordered By: Edilberto Arredondo November Directions: 20 unit subcutaneous daily with breakfast * insulin glulisine (Apidra) 100 unit/mL Solution, Ordered By: Edilberto Turner Directions: 20 unit subcutaneous daily with dinner * Diabetic diet. Activity as tolerated. Follow-up with Dr. Vallejo next week. * atorvastatin (Lipitor) 40 mg Tablet, Ordered By: Edilberto Turner Directions: 1 tablet oral daily at bedtime Stopped medications* None Results LAB--BEDSIDE TESTING from 02/18/2013 5:46 PMGlucose NPT 171 mg/dL H (70-100 mg/ dL) LAB--BEDSIDE TESTING from 02/18/2013 6:20 PMGlucose NPT 185 mg/dL H (70-100 mg/ dL) LAB--BEDSIDE TESTING from 02/18/2013 7:47 PMGlucose NPT 339 mg/dL H (70-100 mg/ dL) LAB--BEDSIDE TESTING from 02/18/2013 11:48 PMGlucose NPT 138 mg/dL H (70-100 mg/ dL) LAB--BEDSIDE TESTING from 02/19/2013 4:08 AMGlucose NPT 292 mg/dL H (70-100 mg/ dL) LAB--BEDSIDE TESTING from 02/19/2013 9:20 AMGlucose NPT 164 mg/dL H (70-100 mg/ dL) LAB--BEDSIDE TESTING from 02/19/2013 12:00 PMGlucose NPT 203 mg/dL H (70-100 mg/ dL) LAB--BEDSIDE TESTING from 02/19/2013 6:23 PMGlucose NPT 105 mg/dL H (70-100 mg/ dL) LAB--BEDSIDE TESTING from 02/19/2013 9:34 PMGlucose NPT 96 mg/dL (70-100 mg/dL) LAB--BEDSIDE TESTING from 02/20/2013 8:09 AMGlucose NPT 288 mg/dL H (70-100 mg/ dL) LAB--CHEMISTRY from 02/19/2013 4:07 AMAnion Gap 6 (3-20 ) BUN 9 mg/dL (4-20 mg/dL) Calcium 8.2 mg/dL L (8.6-10.0 mg/dL) Chloride 106 mEq/L (99-109 mEq/L) CO2 24 mEq/L (22-32 mEq/L) Creatinine 0.73 mg/dL (0.64-1.27 mg/dL) eGFR >60 (>60- ) Glucose 295 mg/dL H (70-100 mg/dL) Potassium 4.3 mEq/L (3.6-5.1 mEq/L) Magnesium 1.9 mg/dL (1.8-2.5 mg/dL) Sodium 136 mEq/L (136-144 mEq/L) Phosphorus 4.3 mg/dL (2.4-4.7 mg/dL) Estimated Average Glucose 266.1 mg/dL Hemoglobin A1C 10.9 % H (4.1-5.6 %) TSH (with reflex Free T4) 0.53 uIU/mL (0.35-5.50 uIU/mL) LAB--CHEMISTRY from 02/19/2013 4:08 AMCalcium Ionized 1.32 mmol/L (1.19-1.41 mmol /L) Vitamin B12 341 pg/mL (211-911 pg/mL) Folate 7.2 ng/mL (2.0-20.0 ng/mL) LAB--CHEMISTRY from 02/20/2013 6:04 AMAnion Gap 6 (3-20 ) BUN 10 mg/dL (4-20 mg/dL) Calcium 8.5 mg/dL L (8.6-10.0 mg/dL) Calcium Ionized 1.34 mmol/L (1.19-1.41 mmol/L) Chloride 106 mEq/L (99-109 mEq/L) CO2 26 mEq/L (22-32 mEq/L) Creatinine 0.70 mg/dL (0.64-1.27 mg/dL) eGFR >60 (>60- ) Glucose 247 mg/dL H (70-100 mg/dL) Potassium 4.1 mEq/L (3.6-5.1 mEq/L) Magnesium 1.9 mg/dL (1.8-2.5 mg/dL) Sodium 138 mEq/L (136-144 mEq/L) LAB--HEMATOLOGY from 02/19/2013 4:07 AMHCT 37.3 % L (42.0-52.0 %) HGB 11.8 g/dl L (14.0-18.0 g/dl) MCH 23.2 pg L (27.0-32.0 pg) MCHC 31.6 g/dL L (32.0-36.0 g/dL) MCV 73.3 fL L (82.0-99.0 fL) MPV 10.2 fL (9.4-12.3 fL) Platelet Count 230 K/uL (150-400 K/uL) RBC 5.09 M/uL (4.60-6.20 M/uL) RDW 15.7 % H (11.5-14.5 %) WBC 9.4 K/uL (4.8-10.8 K/uL) LAB--HEMATOLOGY from 02/20/2013 6:04 AMHCT 38.6 % L (42.0-52.0 %) HGB 12.2 g/dl L (14.0-18.0 g/dl) MCH 23.1 pg L (27.0-32.0 pg) MCHC 31.6 g/dL L (32.0-36.0 g/dL) MCV 73.0 fL L (82.0-99.0 fL) MPV 10.2 fL (9.4-12.3 fL) Platelet Count 208 K/uL (150-400 K/uL) RBC 5.29 M/uL (4.60-6.20 M/uL) RDW 16.1 % H (11.5-14.5 %) WBC 9.1 K/uL (4.8-10.8 K/uL) LAB--SERODIAGNOSIS from 02/19/2013 4:07 AMRPR Non-reactive LAB--URINE TESTS from 02/19/2013 12:45 PMAppearance Clear Bilirubin Negative (Negative ) Blood Negative (Negative ) Color Yellow Glucose Pos 3+ A (Negative ) Ketones, Urine Negative (Negative ) Leukocytes Esterase Negative (Negative ) Nitrites Negative (Negative ) pH, Urine 7.0 (5.0-8.0 ) Protein Negative (Negative ) Specific [place] 1.018 (1.003-1.030 ) Collection Type: Clean Catch Urobilinogen 4.0 mg/dL A (-<1.0 mg/dL)
--- OUTSIDE RECORDS SUMMARY | 2016-11-12 14:44 | XMS REPORT | Summary of Care ---
Author Author Mo Link M.D. Unknown Address [address] [place], [place] [id number] Phone Unavailable Care Team Providers Care Field Crop Farmworker Name Role Phone Mo Link M.D. Unavailable Unavailable Ulises Kowalski II, PP Unavailable Functional Status Functional Status Health Issues* Name Dates Details Functional status health issues are not documented Status: Cognitive Status Health Issues* Name Dates Details Cognitive status health issues are not documented Status: Problems Name Dates Details Type 1 diabetes (250.01, E10.9) Status: Active Hyperlipidemia (272.4, E78.5) Status: Active Allergic rhinitis (477.9, J30.9) Status: Active Sleep apnea (780.57, G47.30) Status: Active Heart disease (429.9, I51.9) Status: Active Stroke (434.91, I63.9) Status: Active Eustachian tube dysfunction, bilateral (381.81, H69.83) Status: Active Medications Name Dates Details Amoxicillin 500 MG Oral Tablet Mo Link M.D.* Started 30-Aug-2015 ActiveInsulin Pump [id number] KIT * Refills: 0 oM Link M.D.* Started 30-Aug-2015 Active Allergies and Adverse Reactions Name Dates Details No Known Drug Allergies Status: Active Procedures Procedure Dates Details Procedures not documented Immunization Name Dates Details Immunizations not documented Family History Unknown Family Member* Name Dates Details Family history of Heart Surgery Comments: Family History Status: Active Family history of Familial obstructive sleep apnea (327.23, G47.33) Comments: Family History Status: Active Family history of diabetes mellitus (V18.0, Z83.3) Comments: Family History Status: Active Family history of High cholesterol (272.0, E78.0) Comments: Family History Status: Active Social History Name Dates Details Smoking Status* Current every day smoker Vital Signs Date Test Result Details No Known Vitals to report Results Date Description Value Details Results not documented Plan of Care Planned Observations* Name Dates Details Planned Goals not documented Goal Instructions * Instructions not documented Encounters Appointment; Mo Link Encounter Diagnosis: Problem not documented On 30-Aug-2015 10:00
--- OUTSIDE RECORDS SUMMARY | 2016-11-12 14:44 | XMS REPORT | Continuity of Care Document ---
Author Author [facility] Organization [facility] Address [address] [place] [address] Phone Unavailable Care Team Providers Care Stem Assembler Name Role Phone OTHER, PROVIDER Unavailable [phone] Insurance Providers Payer Name Policy Number Subscriber Name Relationship [facility] [id number] [place] SELF / SAME PATIENT Advance Directives Directive Response Recorded Date/Time Advance Directives: No 12/23/14 11:45am Chief Complaint and Reason for Visit Reason for Visit Laceration of lower leg Problems Medical Problems Problem Onset Date Status Laceration of lower leg Unknown Active Medications Medication Dose Route Sig Days/Qty Instructions Order Date Discontinued Date Status Insulin Glulisine (Apidra) 100 U/ML AMARIS 20 U SUBCUTANEOUS Three times per day Active Fish Oil (Cardi-[place]) 1,000 MG SGL 1,000 MG ORAL At bedtime Active Amox Tr/Potassium Clavulanate (Augmentin) 875 MG TABLET 1 TAB ORAL Twice daily with food 14 Qty 12/23/14 Active Family History Relationship Name Date of Condition Age ( At Onset ) Cause of Age ( At ) Age Gender Recorded Date/Time FATHER No pertinent family history M 12/23/14 1149 Social History Query Response Start Date Stop Date Smoking status: Current every day smoker Hospital Discharge Instructions No hospital discharge instructions. Plan of Care Discharge Date 12/23/14 12:26pm Disposition HOME, SELF CARE, ASST LIVING Condition at Discharge Stable Instructions/Education Provided Laceration (ED) Prescriptions See Medications Section Referrals OTHER,PROVIDER Additional Instructions/Education Discharge to Home Keep wound clean and dry, change dressing daily and as needed Augmentin 875mg one tablet twice per day for 7 days Follow up with primary care provider Return to ER as needed Some of your test results may not be complete prior to your leaving the Emergency Department. The Emergency Department is not authorized to give test results over the phone. Please contact the doctor's office listed on form for your final results. Follow up with your primary care physician or return to the Emergency Department for worsening or worrisome symptoms. * Emergency Department phone number: [phone] MEDICAL RECORD If you need copies of your X-rays, call [phone]. If you need copies of your medical record, including lab results, a signed authorization for release of records will be required. A telephone call for release of Health Information is not allowed. BILLING Billing can sometimes be confusing and frustrating. To help avoid confusion in the future, please take a moment to acquaint yourself with the billing parties for services. SERVICE BILLING [facility] Physician Services [facility] X-rays (Interpretation) [facility] Patients will receive bills for services from the appropriate provider. If have any questions about your [facility] bill, our staff will be happy to assist you. Please call [phone] and ask for the billing department. THANK YOU for choosing [facility] as your emergency care provider. Care Plan and Goals ~~Discharge Care Plan~~ Problem: Laceration repaired Goal: Wound is closed with edges lined up, and will heal without redness, drainage or signs of infection. Instructions: Keep wound clean and dry. Apply antibiotic ointment as directed. Follow physician discharge instructions. Keep wound covered if working in an unclean environment. Wear gloves working with food in a work environment. Functional Status No functional status results. Allergies, Adverse Reactions, Alerts Allergen Type Severity Reaction Status Last Updated No Known Drug Allergies - Nkda Allergy Unknown Active 12/23/14 Immunizations Name Date Given Type Tetanus Yes Historical Vital Signs Vital Reading Collection Date/Time Result Blood Pressure 12/23/14 12:34pm 120/70 Blood Pressure Source 12/23/14 12:34pm SI Patient Temperature 12/23/14 12:34pm 98.9 Temperature Source 12/23/14 12:34pm O Respiratory Rate 12/23/14 12:34pm 16 Pulse Rate 12/23/14 12:34pm 88 Pulse Location 12/23/14 12:34pm PO Bedside Pulse Oximetry 12/23/14 12:34pm 98 Procedures No Known History of Procedures. Results No Known Relevant Diagnostic Tests, Laboratory Data and/or Discharge Summary. Encounters Encounter Location Date/Time Departed Emergency [facility] 12/23/14 12:26pm Recent Diagnosis Laceration of lower leg
[2016-11-12] MEDS ORDERED: ARIP30TA5 PO (14:56)
[2016-11-12] MEDS ORDERED: INSU100I3 SQ (14:59)
[2016-11-12] MEDS ORDERED: QUET50TA53 PO (15:00)
[2016-11-12] MEDS ORDERED: INSU100I24 SQ (15:00)
[2016-11-12] MEDS ORDERED: ALPR2TAB5 PO (15:00)
[2016-11-12 15:04] LABS: BLOOD, URINE NEGATIVE (NEGATIVE); COLOR,URINE YELLOW (YELLOW); LEUKOCYTE ESTERASE ,URINE NEGATIVE (NEGATIVE); NITRITE,URINE NEGATIVE (NEGATIVE); UROBILINOGEN,URINE 0.2 EU/DL (NORMAL)
--- NOTE | 2016-11-12 15:14 | DI ---
Indication: ITS.REASON: fall, possible head injury PROCEDURE: CT HEAD W/O CONTRAST: Encounter: Initial Comparison: None Technique: Axial CT images through the head were performed without contrast. Iterative Reconstruction dose reducing technique was utilized. FINDINGS: The ventricles are of normal size, shape, and configuration for the patient's age. There are some normal variant asymmetric globus pallidus calcifications in the left basal ganglia. There is no evidence of acute intracranial hemorrhage, midline displacement, or mass effect. The CT attenuation of the brain parenchyma is normal within the cerebellum, brain stem, and cerebral hemispheres. The tympanic cavities and mastoid air cells are free of appreciable disease. There are no definite fractures of the skull base, calvarium, or visualized portion of the midface. IMPRESSION: No CT evidence of acute traumatic intracranial injury. .
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
--- NOTE | 2016-11-12 15:30 | DI ---
Indication: ITS.REASON: left hand injury PROCEDURE: HAND LEFT 3 VIEW: Encounter: Initial Comparison: None Findings: There is no acute fracture, dislocation or malalignment identified. There is a well-corticated ossicle posterior to the carpal bones on the lateral view which could suggest a remote triquetral fracture. 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 There is mild soft tissue swelling adjacent to the fifth metacarpal. There is no definite acute appearing displaced fracture or bony destructive process. There are some cystic changes in the scaphoid and multangular. Impression: Moderate soft tissue swelling without definite acute appearing displaced fracture. .
--- OUTSIDE RECORDS SUMMARY | 2016-11-12 15:30 | XMS REPORT | Continuity of Care Document ---
Author Author [facility] Organization [facility] Address Unknown Phone Unavailable Support Name Relationship Address Phone PHOENIX CHANDLER II, MD Caregiver [address] [place] [phone] LORENZO QUILES MD Caregiver [address] [place] [address] [place] [phone] NYLA WATTS Next Of Kin [address] [place] [address] CP Insurance Providers Payer Name Policy Number Subscriber Name Relationship [facility] [id number] Nyla Watts 01 Spouse Advance Directives Directive Response Recorded Date/Time Advanced Directives Type None 12/15/13 9:23pm Ordered Resuscitation Status Full Code 12/15/13 7:47pm Chief Complaint and Reason for Visit Chief Complaint Chest Pain Reason for Visit Orthostasis [id number] Chest pain Problems Medical Problems Problem Onset [...] 325 Mg PO DAILY 02/17/13 Active Fish Oil/[place]-3 Fatty Acids 4 Cap PO DAILY 02/17/13 [...] DR. CHANDLER 12/28/13 AT 8:30 AM - [phone] - DR. GARBER 12/24/13 AT 3:15 PM - [phone] Condition at time of discharge: Good Care [...] Date 12/16/13 3:15pm Disposition 02 TO OBS [facility] [place] Condition at Discharge Stable Instructions/Education Provided DI [...] F (96.8 - 99.1) Temperature (Calculated Celsius) 36.37999 degrees C (36.0 - 37.3) Temperature Source [...] % N 0-9.0 Ordering r/o VTE Yes PZ-Nuf-F-Type Natriuretic Peptide December 15, 2013 6:50pm 41 [...] Has specimen been collected/obtained? Y Urine Specific [place] December 15, 2013 7:05pm 1.025 - Has [...] MD Encounters Encounter Location Date/Time Registered Clinic [facility] 12/31/13 8:09am Discharged Inpatient [facility] 12/15/13 8:30pm Discharged Recurring [facility] 11/20/13 8:30am
--- OUTSIDE RECORDS SUMMARY | 2016-11-12 15:30 | XMS REPORT | Continuity of Care Document ---
Author Author [facility] Organization [facility] Address Unknown Phone Unavailable Support Name Relationship Address Phone MAYO CARPENTER MD Caregiver [address] [place] [address] PHOENIX RUSSELL II, MD Caregiver [address] [facility] [address] [address] [place] [phone] NYLA WATTS Next Of Kin [address] [place] [address] CP Insurance Providers Payer Name Policy Number Subscriber Name Relationship [facility] [id number] Nyla Watts 01 Spouse Advance Directives Directive Response Recorded Date/Time Advanced Directives Type None 12/15/13 9:23pm Ordered Resuscitation Status Full Code 12/15/13 7:47pm Chief Complaint and Reason for Visit Chief Complaint Neuro Symptoms/Deficits Reason for Visit Numbness on right side [id number] Problems Medical Problems Problem Onset Date Status [...] Mg PO BEDTIME 02/17/13 07/20/14 Discontinued Fish Oil/[place]-3 Fatty Acids 4 Cap PO BEDTIME 02/17/13 [...] is ok for you to drive to [place] for class tomorrow 07/21 if you decide to not cancel your class. Follow Up Appointments: APPOINTMENT WITH DR. TAVARES ON JUL 21 AT 4:00. With Dr Russell 07/26 at 9:15 AM [facility] Patient Instructions: Stop Smoking STOP BY [...] F (96.8 - 99.1) Temperature (Calculated Celsius) 36.25386 degrees C (36.0 - 37.3) Pulse Rate [...] Has specimen been collected/obtained? Y Urine Specific [place] July 29, 2014 11:47am 1.015 - Has [...] July 29, 2014 11:04am < 2 0-7 XE-Icp-I-Type Natriuretic Peptide December 15, 2013 6:50pm 41 [...] 2013 2:45pm Name: ISRAEL WATTS Unit #: [id number] : [id number] Sex: M Loc / Svc: ED DOS: 07/29/14 Signed Report #: [id number] DIAGNOSTIC IMAGING REPORT TYPE OF EXAM: CT [...] Encounters Encounter Location Date/Time Departed Emergency Room [facility] 07/29/14 9:51am Registered Clinic [facility] 07/29/14 6:33am Discharged Inpatient [facility] 07/19/14 3:59pm Recent Diagnosis
--- OUTSIDE RECORDS SUMMARY | 2016-11-12 15:30 | XMS REPORT | Continuity of Care Document ---
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 NELLY WOLFF [...] WOLFF MD 09/26/2015 NELLY WOLFF MD Z79.2 assisted (current) use of antibiotics NELLY WOLFF MD 09/26/2015 NELLY WOLFF MD Z79.4 assisted (current) use of insulin NELLY WOLFF MD Procedures Code Description [place] [address] Office or other outpatient visit for the evaluation and management of an established patient, which NELLY WOLFF MD 09/22/2015 97240 Office or other outpatient visit for the evaluation and management of an established patient, which NELLY WOLFF MD 09/22/2015 20467 Office or other outpatient visit for the evaluation and management of an established patient, which NELLY WOLFF MD 09/26/2015 39939 Office or other outpatient visit for the evaluation and management of an established patient, which NELLY WOLFF MD 09/26/2015 27281 Office or other outpatient visit for the [...] Status Pt. Type Provider Facility Loc./Unit Complaint [id number] 09/26/2015 14:03:02 [facility] Outpatient MARIELLA AYERS, NELLY To
--- OUTSIDE RECORDS SUMMARY | 2016-11-12 15:30 | XMS REPORT | Continuity of Care Document ---
Author Author [facility] Organization [facility] Address Unknown Phone Unavailable Support Name Relationship Address Phone PHOENIX CHANDLER II, MD Caregiver [address] [place] [phone] LORENZO QUILES MD Caregiver [address] [place] [address] [place] [phone] NYLA WATTS Next Of Kin [address] [place] [address] CP Insurance Providers Payer Name Policy Number Subscriber Name Relationship [facility] [id number] Nyla Watts 01 Spouse Advance Directives Directive Response Recorded Date/Time Advanced Directives Type None 12/15/13 9:23pm Ordered Resuscitation Status Full Code 12/15/13 7:47pm Chief Complaint and Reason for Visit Chief Complaint Chest Pain Reason for Visit Orthostasis [id number] Chest pain Problems Medical Problems Problem Onset [...] 325 Mg PO DAILY 02/17/13 Active Fish Oil/[place]-3 Fatty Acids 4 Cap PO DAILY 02/17/13 [...] DR. CHANDLER 12/28/13 AT 8:30 AM - [phone] - DR. GARBER 12/24/13 AT 3:15 PM - [phone] Condition at time of discharge: Good Care Plan Discharge Patient: Patient Instructions: see patient instructions Plan of Care Discharge Date 12/16/13 3:15pm Disposition 02 [place] [facility] at Discharge Stable Instructions/Education Provided DI [...] F (96.8 - 99.1) Temperature (Calculated Celsius) 36.02822 degrees C (36.0 - 37.3) Temperature Source [...] Has specimen been collected/obtained? Y Urine Specific [place] December 15, 2013 7:05pm 1.025 - Has [...] December 15, 2013 6:50pm < 2 0-7 SP-Lbl-R-Type Natriuretic Peptide December 15, 2013 6:50pm 41 [...] MD Encounters Encounter Location Date/Time Registered Clinic [facility] 01/14/14 7:52am Registered Clinic [facility] 12/31/13 8:09am Discharged Inpatient [facility] 12/15/13 8:30pm Discharged Recurring [facility] 11/05/13 8:25am Recent Diagnosis IDDM (insulin dependent diabetes mellitus)
--- OUTSIDE RECORDS SUMMARY | 2016-11-12 15:30 | XMS REPORT | Continuity of Care Document ---
Author Author [facility] Organization [facility] Address Unknown Phone Unavailable Support Name Relationship Address Phone FREDERICK AYALA MD Caregiver [facility] [address] [place] [address] SAHRA KELLY [address] [place] [id number] LEO COLUNGA DO Caregiver [facility] [address] [place] [address] PHOENIX RUSSELL II, MD Caregiver [address] [place] [address] [phone] NYLA WATTS Next Of Kin [address] [place] [address] CP Insurance Providers Payer Name Policy Number Subscriber Name Relationship [facility] [id number] Nyla Watts 01 Spouse Advance Directives Directive [...] Mg PO BEDTIME 02/17/13 07/20/14 Discontinued Fish Oil/[place]-3 Fatty Acids 4 Cap PO BEDTIME 02/17/13 [...] is ok for you to drive to [place] for class tomorrow 07/21 if you decide to not cancel your class. Follow Up Appointments: APPOINTMENT WITH DR. TAVARES ON JUL 21 AT 4:00. With Dr Russell 07/26 at 9:15 AM [facility] Patient Instructions: Stop Smoking STOP BY THE [...] F (96.8 - 99.1) Temperature (Calculated Celsius) 37.99700 degrees C (36.0 - 37.3) Temperature Source [...] 19, 2014 1:03pm 6.7 % N 0-9.0 QJ-Mxu-V-Type Natriuretic Peptide December 15, 2013 6:50pm 41 [...] Has specimen been collected/obtained? Y Urine Specific [place] July 19, 2014 2:40pm 1.010 L - Has specimen been collected/obtained? Y Urine Turbidity July 19, 2014 2:40pm Clear - Has specimen been collected/obtained? Y Urine Urobilinogen July 19, 2014 2:40pm 0.2 EU/DL - Has specimen been collected/obtained? Y Urine pH July 19, 2014 2:40pm 6.0 - Has specimen been collected/ obtained? Y Vitamin B12 Level November 07, 2011 7:00am 845 PG/ML N [phone] COMMENT may use blood in lab White Blood Count July 19, 2014 1:03pm 11.1 T/MM3 H 4.5-11.0 Blood Culture Blood November 07, 2011 3:40am NO GROWTH AFTER 5 DAYS Stool Culture Stool October 13, 2013 1:49pm Ova and Parasites Stool October 13, 2013 2:45pm Name: ISRAEL WATTS Unit #: [id number] : [id number] Sex: M Loc / Sv: ED DOS: 07/19/14 Signed Report #: [id number] DIAGNOSTIC IMAGING REPORT TYPE OF EXAM: MRI [...] procedures. Encounters Encounter Location Date/Time Discharged Inpatient [facility] 07/19/14 3:59pm Recent Diagnosis Numbness on right side Blurred vision, right eye Numbness on right side
--- NOTE | 2016-11-12 15:31 | DI ---
INDICATION: ITS.REASON: fall, chest wall tenderness PROCEDURE: CHEST 2-VIEWS UPRIGHT (PA \T\ LAT) Encounter: Initial COMPARISON: 07/29/2014 FINDINGS: The lungs are clear without evidence of focal abnormal airspace opacity. There is no pleural effusion or pneumothorax. The heart size, mediastinal contours and pulmonary vascularity are within normal limits. There is no significant skeletal abnormality. IMPRESSION: No acute cardiopulmonary disease. .
--- OUTSIDE RECORDS SUMMARY | 2016-11-12 15:31 | XMS REPORT ---
Author Author [facility], [facility] - Organization Unknown Address Unknown Phone Unavailable [...] the responsibility of the patient or patient reimbursement representative to confirm the list of medications [...] (5.0-8.0 ) Protein Negative (Negative ) Specific [place] 1.018 (1.003-1.030 ) Collection Type: Clean Catch Urobilinogen 4.0 mg/dL A (-<1.0 mg/dL)
--- OUTSIDE RECORDS SUMMARY | 2016-11-12 15:31 | XMS REPORT | Continuity of Care Document ---
Author Author [facility] Organization [facility] Address Unknown Phone Unavailable Support Name Relationship Address Phone FREDERICK AYALA MD Caregiver [facility] [address] [facility] [facility] [facility] SA[address]RA KELLY [address] [place] [address] PHOENIX CHANDLER II, MD Caregiver [address] [place] [address] [phone] NYLA WATTS Next Of Kin [address] [place] [address] CP Insurance Providers Payer Name Policy Number Subscriber Name Relationship [facility] [id number] Nyla Watts 01 Spouse Advance Directives Directive Response Recorded Date/Time Advanced Directives Type None 12/15/13 9:23pm Ordered Resuscitation Status Full Code 12/15/13 7:47pm Chief Complaint and Reason for Visit Chief Complaint Chest Pain Reason for Visit Orthostasis [id number] Chest pain Problems Medical Problems Problem Onset [...] 325 Mg PO BEDTIME 02/17/13 Active Fish Oil/[place]-3 Fatty Acids 4 Cap PO BEDTIME 02/17/13 [...] DR. CHANDLER 12/28/13 AT 8:30 AM - [phone] - DR. GARBER 12/24/13 AT 3:15 PM - [phone] Condition at time of discharge: Good Care [...] Date 12/16/13 3:15pm Disposition 02 TO OBS [facility] Condition at Discharge Stable Instructions/Education Provided DI [...] F (96.8 - 99.1) Temperature (Calculated Celsius) 36.63964 degrees C (36.0 - 37.3) Temperature Source [...] 0-9.0 COMMENT WILL CALL WHEN PATIENT HERE ST-Aag-F-Type Natriuretic Peptide December 15, 2013 6:50pm 41 [...] Has specimen been collected/obtained? Y Urine Specific [place] December 15, 2013 7:05pm 1.025 - Has [...] 2013 2:45pm Name: ISRAEL WATTS Unit #: [id number] : [id number] Sex: M Loc / Svc: [place] DOS: 12/31/13 Signed Report #: [id number] DIAGNOSTIC IMAGING REPORT TYPE OF EXAM: MRI [...] MD Encounters Encounter Location Date/Time Departed Clinic [facility] 02/03/14 11:56am Registered Clinic [facility] 01/14/14 7:52am Registered [facility] 12/31/13 8:09am Discharged Inpatient [facility] 12/15/13 8:30pm Discharged Recurring [facility] 11/05/13 8:25am
--- OUTSIDE RECORDS SUMMARY | 2016-11-12 15:31 | XMS REPORT | Continuity of Care Document ---
Author Author [facility] Organization [facility] Address [address] [place] [address] Phone Unavailable Care Team Providers Care Cdc Associate Name Role Phone OTHER, PROVIDER Unavailable [phone] Insurance Providers Payer Name Policy Number Subscriber Name Relationship [facility] [id number] ISRAEL WATTS SELF / SAME PATIENT Advance [...] Three times per day Active Fish Oil (Cardi-[place]) 1,000 MG SGL 1,000 MG ORAL At [...] worrisome symptoms. * Emergency Department phone number: [phone] MEDICAL RECORD If you need copies of your X-rays, call [phone]. If you need copies of your medical record, including lab results, a signed authorization for release of records will be required. A telephone call for release of Health Information is not allowed. BILLING Billing can sometimes be confusing and frustrating. To help avoid confusion in the future, please take a moment to acquaint yourself with the billing parties for services. SERVICE BILLING CONSTITUTION PARTY Emergency Room Services [facility] Physician Services [facility] X-rays (Interpretation) [facility] Patients will receive bills for services from the appropriate provider. If have any questions about your [facility] bill, our staff will be happy to assist you. Please call [phone] and ask for the billing department. THANK YOU for choosing [facility] as your emergency care provider. Care Plan [...] Summary. Encounters Encounter Location Date/Time Departed Emergency [facility] 12/23/14 12:26pm Recent Diagnosis Laceration of lower leg
[2016-11-12 15:36] LABS: BASOPHILS # (AUTO) 0.1 T/MM3 (0-0.2); BASOPHILS % (AUTO) 0.5 % (0-2); EOSINOPHILS # (AUTO) 0.3 T/MM3 (0-0.5); EOSINOPHILS % (AUTO) 2.6 % (0-4); HCT - HEMATOCRIT 41.3 % (41-53); HGB - HEMOGLOBIN 13.8 GM/DL (13.5-17.5); IMMATURE GRANULOCYTE # (AUTO) 0.03 T/MM3 (0.00-0.03); IMMATURE GRANULOCYTE % (AUTO) 0.3 % (0.0-0.5); LYMPHOCYTES # (AUTO) 3.2 T/MM3 (1-4.8); LYMPHOCYTES % (AUTO) 32.3 % (23-45); MEAN CORPUSCULAR HGB 23.1 UUG (26-34); MEAN CORPUSCULAR HGB CONC(MCHC 33.4 GM/DL (31-37); MEAN CORPUSCULAR VOLUME 69.2 UM3 (80-100); MEAN PLATELET VOLUME 10.8 UM3 (9.4-12.4); MONOCYTES # (AUTO) 0.7 T/MM3 (0-0.8); MONOCYTES % (AUTO) 7.5 % (0-9.0); NEUTROPHILS #(AUTO)-ABSOLUTE 5.6 T/MM3 (1.8-7.7); NEUTROPHILS % (AUTO) 56.8 % (33-66); RED BLOOD COUNT 5.97 M/MM3 (4.50-5.90); WBC - WHITE BLOOD COUNT 9.9 T/MM3 (4.5-11.0)
[2016-11-12 15:46] LABS: ANION GAP 12 MEQ/L (5-15); BUN/CREATININE RATIO 13 RATIO (6-26); CALCIUM 9.6 MG/DL (8.4-10.2); CHLORIDE 109 MEQ/L (98-107); CO2 - CARBON DIOXIDE 25 MEQ/L (22-30); CREATININE 0.6 MG/DL (0.8-1.5); GLOMERULAR FILTRATION RATE 143; GLUCOSE 76 MG/DL (75-110); SODIUM 146 MEQ/L (134-144)
--- NOTE | 2016-11-12 16:03 | NUR ---
ALSO PROVIDED SANDWICH AND MILK PER ZI COULTER FOR BLOOD SUGAR OF 69
--- NOTE | 2016-11-12 16:30 | NUR ---
ACTIVITY PATIENT AMBULATORY TO RESTROOM, PATIENT APPEARS TO BE MORE STEADY ON HIS FEET.
[2016-11-12] MEDS ORDERED: CYCL-375 PO (16:34)
[2016-11-12 16:40] VITALS: BP 130/71; PULSE 87; RESP 18; O2SAT 96
== END 2016-11-12 16:40 | disposition home or self-care (01) ==
LOC: ED 14:38
DX: S60.222A Contusion of left hand, initial encounter (principal); S09.90XA Unspecified injury of head, initial encounter; R07.89 Other chest pain; E11.9 Type 2 diabetes mellitus without complications; Z79.4 Long term (current) use of insulin; W11.XXXA Fall on and from ladder, initial encounter; Y93.H9 Activity, other involving exterior property and land maintenance, building and construction; Y92.008 Other place in unspecified non-institutional (private) residence as the place of occurrence of the external cause; Y99.8 Other external cause status
CPT/HCPCS: 36415; 80048; 81003; 82948; 85025; 93005

== ENCOUNTER 2017-06-15 13:49 | Observation (INO) ==
[2017-06-15] MEDS: NITROGLYCERIN 0.4 MG SUBLINGUAL TABLET SL PRN ×3 (14:00→14:19)
[2017-06-15] MEDS ORDERED: ASPIRIN 81 MG CHEWABLE TABLET PO ONE (14:01)
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
[2017-06-15] MEDS: SALINE FLUSH 10ml SYRINGE IVF PRN ×2 (14:07→15:15)
--- OUTSIDE RECORDS SUMMARY | 2017-06-15 14:07 | External Medical Summary | Clinical Summary ---
:1965 Author Organization [facility] Address [address] [address] Phone Support Name Relationship Address Phone Unavailable Unavailable Unavailable Allergies No Known Allergies Current Medications Prescription Sig. Disp. Refills Start Date End Date Status aspirin 81 MG EC Take 81 mg by Active tablet mouth daily. fish oil (OMEGA-3) Take 4,000 mg by Active 1000 MG capsule mouth daily. omeprazole (PRILOSEC) Take 40 mg by Active 40 MG capsule mouth daily. atorvastatin (LIPITOR) Take 40 mg by Active 40 MG tablet mouth daily. pantoprazole Take 40 mg by Active (PROTONIX) 40 MG mouth daily. tablet clopidogrel (PLAVIX) Take 75 mg by Active 75 MG tablet mouth daily. citalopram (CELEXA) 40 Take 40 mg by Active MG tablet mouth daily. insulin aspart Inject 20 units 60 mL 1 03/10/2015 Active (NOVOLOG FLEXPEN) 100 for meals + SS UNIT/ML pen total 80 units injectionIndications: daily Indications: Type 1 Diabetes Insulin-Dependent Mellitus Diabetes guaifenesin-codeine Take 5 mLs by 240 mL 1 03/28/2015 Active (ROBITUSSIN AC) 100-10 mouth 4 (four) MG/5ML syrup times daily as needed for Cough. ciprofloxacin (CIPRO) Take 1 tablet (500 20 tablet 0 03/28/2015 Active 500 MG tablet mg total) by mouth 2 (two) times daily. albuterol (PROAIR, Inhale 2 puffs 1 Inhaler 2 03/28/2015 Active PROVENTIL, VENTOLIN) into the lungs 108 (90 BASE) MCG/ACT every 6 (six) inhaler hours as needed for Wheezing. insulin detemir Inject 0.15 mLs 30 mL 1 04/14/2015 Active (LEVEMIR FLEXTOUCH, (15 Units total) FLEXPEN) 100 UNIT/ML into the skin 2 pen (two) times daily. injectionIndications: Type I (juvenile type) diabetes mellitus without mention of complication, uncontrolled (HCC) TORI CONTOUR NEXT USE 1 STRIP TO 200 strip 0 03/20/2016 Active test strip TEST 6-8 TIMES DAILY TO MONITOR CAPILLARY BLOOD GLUCOSE. Active Problems Problem Noted Date Type 1 diabetes mellitus (HCC) 03/28/2015 Hyperlipidemia 03/28/2015 Arteriosclerotic heart disease 03/28/2015 Family History Medical History Relation Name Comments Diabetes Father Heart disease Mother No Known Problems Sister No Known Problems Sister No Known Problems Sister No Known Problems Sister No Known Problems Son No Known Problems Son Relation Name Status Comments Father Mother Sister Alive Sister Alive Sister Alive Sister Alive Son Alive Son Alive Social History Tobacco Use Types Packs/Day Years Used Date Current Every Day Smoker Cigarettes 3 Smokeless Tobacco: Never Used Tobacco Cessation: Ready to Quit: No; Counseling Given: Yes Alcohol Use Drinks/Week oz/Week Comments No 0 Standard drinks or equivalent 0.0 Sex Assigned at Date Recorded Not on file Last Filed Vital Signs Vital Sign Reading Time Taken Blood Pressure 120/78 03/28/2015 3:52 PM CDT Pulse 84 03/28/2015 3:52 PM CDT Temperature 37.1 C (98.7 F) 03/28/2015 3:52 PM CDT Respiratory Rate 12 03/28/2015 3:52 PM CDT Oxygen Saturation - - Inhaled Oxygen Concentration - - Weight 91.6 kg (202 lb) 03/28/2015 3:52 PM CDT Height 182.9 cm (6') 03/28/2015 3:52 PM CDT Body Mass Index 27.4 03/28/2015 3:52 PM CDT Plan of Treatment Health Maintenance Due Date Last Done Comments Ophthalmology Exam 1977 DTaP,Tdap,and Td Vaccines (1 - Tdap) 1986 Diabetic Foot Exam 03/10/2016 03/10/2015 Colon Cancer Screening 2017 Influenza Vaccine (#1) 2017 Goals Patient Goal Type Goal Recent Progress Patient-Stated? Author Weight Weight (lb) < 91.6 kg (202 lb) No Barbie Rogers, 200 (03/28/2015 3:52 MD PM CDT) Results Not on filefrom Last 3 Months
--- OUTSIDE RECORDS SUMMARY | 2017-06-15 14:07 | External Medical Summary | Summary of Care ---
:1965 Author Name Mo Link M.D. Address [address], [place] [id number] Care Team Providers Name Role Phone Mo Link M.D. Unavailable Unavailable Ulises Kowalski II Primary Care Provider Unavailable Functional Status Functional Status Health Issues Name Dates Details Functional status health issues are not documented Status: Cognitive Status Health Issues Name Dates Details Cognitive status health issues [...] Dates Details Amoxicillin 500 MG Oral Tablet Refills: 0 Mo Link M.D. Started 30-Aug-2015 ActiveInsulin Pump [id number] KIT Refills: 0 Mo Link M.D. Started 30-Aug-2015 Active Allergies and Adverse Reactions Name Dates Details No Known Drug Allergies Status: Active Procedures Procedure Dates Details Procedures not documented Immunization Name Dates Details Immunizations not documented Family History Unknown Family Member Name Dates Details Family history of Heart Surgery Comments: Family History Status: Active Family history of Familial obstructive sleep apnea (327.23, G47.33) Comments: Family History Status: Active Family history of diabetes mellitus (V18.0, Z83.3) Comments: Family History Status: Active Family history of High cholesterol (272.0, E78.0) Comments: Family History Status: Active Social History Name Dates Details Smoking StatusCurrent every day smoker Vital Signs Date Test Result Details No Known Vitals to report Results Date Description Value Details Results not documented Plan of Care Planned Observations Name Dates Details Planned Goals not documented Goal Instructions Instructions not documented Encounters Appointment; Mo Link On 30-Aug-2015 Encounter Diagnosis: Problem not documented 10:00
--- OUTSIDE RECORDS SUMMARY | 2017-06-15 14:07 | External Medical Summary | Continuity of Care Document ---
:1965 Author Organization [facility] Care Team Providers Name Role Phone OTHER, PROVIDER Primary Care Physician Unavailable Insurance Providers Payer Name Policy Number Subscriber Name Relationship [facility] [id number] [place] SELF / SAME PATIENT Advance Directives Directive Response Recorded Date/Time Advance Directives: No 12/23/14 11:45am Chief Complaint and Reason for Visit Reason for Visit Laceration of lower leg Problems Medical Problems Problem Onset Date Status Laceration of lower leg Unknown Active Medications Medication Dose Route Sig Days/Qty Instructions Order Discontinued Status Date Date Insulin 20 U SUBCUTANEOUS Three Active Glulisine times (Apidra) 100 per day U/ML AMARIS Fish Oil 1,000 ORAL At Active (Cardi-Esko MG bedtime ) 1,000 MG SGL Amox 1 TAB ORAL Twice 14 Qty 12/23/ Active Tr/Potassium daily 15 Clavulanate with (Augmentin) food 875 MG TABLET Family History Relationship Name Date of Condition Age ( At Cause of Age ( At Age Gender Recorded Onset ) ) Date/Time FATHER No pertinent M 12/23/14 family 11411 history Social History Query Response Start Date Stop [...] worrisome symptoms. * Emergency Department phone number: [phone] MEDICAL RECORD If you need copies of your X-rays, call [phone]. If you need copies of your medical record, including lab results, a signed authorization for release of records will be required. A telephone call for release of Health Information is not allowed. BILLING Billing can sometimes be confusing and frustrating. To help avoid confusion in the future, please take a moment to acquaint yourself with the billing parties for services. SERVICE BILLING LIBERTARIAN Emergency Room Services [facility] Physician Services [facility] X-rays (Interpretation) [facility] Patients will receive bills for services from the appropriate provider. If have any questions about your [facility] bill, our staff will be happy to assist you. Please call [phone] and ask for the billing department. THANK YOU for choosing [facility] as your emergency care provider. Care [...] Summary. Encounters Encounter Location Date/Time Departed Emergency [facility] 12/23/14 12:26pm Recent Diagnosis Laceration of lower leg
[2017-06-15] MEDS: NS 500 ML IV SCH ×3 (15:15→17:13)
[2017-06-15 16:54] VITALS: BMI 27.5
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
[2017-06-15] MEDS ORDERED: INSULIN GLARGINE 100unit/ml INJECTION SQ SCH (21:00)
[2017-06-15] MEDS ORDERED: PANTOPRAZOLE 40 MG TABLET PO SCH (21:00)
[2017-06-15] MEDS ORDERED: CLOPIDOGREL 75 MG TABLET PO SCH (21:00)
[2017-06-15] MEDS ORDERED: ASPIRIN 81 MG CHEWABLE TABLET PO SCH (21:00)
[2017-06-15] MEDS ORDERED: ATORVASTATIN 40 MG TABLET PO SCH (21:00)
[2017-06-15] MEDS ORDERED: DULOXETINE 30 MG CAPSULE PO SCH (21:00)
[2017-06-15] MEDS ORDERED: NON-FORMULARY MEDICATION 1 EACH EACH (Omega-3/Dha/Epa/Fish Oil [Fish Oil 1,000 Mg Softgel] PO SCH (21:00)
[2017-06-15] MEDS ORDERED: ONDANSETRON 4 MG/2 ML INJECTION IVP PRN (21:03)
[2017-06-15] MEDS ORDERED: ACETAMINOPHEN 500 MG TABLET PO PRN (21:03)
[2017-06-15] MEDS ORDERED: CALCIUM CARBONATE Chewable 500mg TABLET PO PRN (21:04)
[2017-06-15] MEDS ORDERED: MAG-AL + SIM ORAL LIQUID 30ml PO PRN (21:04)
[2017-06-15] MEDS ORDERED: DOCUSATE SODIUM 100 MG CAPSULE PO PRN (21:04)
[2017-06-15] MEDS ORDERED: OMEGA-3 ACID ESTERS 1 GM CAPSULE PO SCH (22:14)
[2017-06-16 07:31] VITALS: BP 131/67; RESP 16; TEMP 97.7; O2SAT 97
[2017-06-16 08:00] VITALS: PULSE 84
[2017-06-16] MEDS ORDERED: INFLUENZA VAC QIV 2017-18 (Fluarix*)(>=3yo) 0.5ml IM ONE (09:00)
[2017-06-16] MEDS: INSULIN ASPART 100unit/ml INJECTION SQ SCH ×2 (10:03→12:23)
--- NOTE | 2017-06-16 12:24 | Discharge Summary ---
<Carine Silva - Last Filed: 06/16/17 12:49> Discharge Information Date of admission: 06/15/17 16:19 Anticipated date of discharge: 06/16/17 Attending Physician: Edu Kelly MD Primary care physician: Trupti Tejada, DO - Discharge Diagnosis (1) Chest pain Status: Resolved (2) CAD (coronary artery disease) Status: Chronic (3) COPD (chronic obstructive pulmonary disease) Status: Chronic (4) Tobacco abuse Status: Chronic (5) Diabetic peripheral neuropathy associated with type 1 diabetes mellitus Status: Chronic (6) Foot ulcer, right Status: Chronic (7) Type 1 diabetes mellitus with hyperglycemia Status: Chronic (8) Skipped heart beats Status: Acute Chest pain: Atypical - occurred while sitting. ECG: NSR. Trop neg x2. CP relieved with NTG x3. Ordered: serial trop, repeat ECG in am. If ECG and trop neg then will DC tomorrow and follow up with Dr. Kelly in office for stress test. CAD: cont Plavix and ASA, and statin. Skipped heart beat: Monitor tele. Need to f/u in office with a holter monitor. DM Type 1: cont home insulin, FBS and 2 hr pc. COPD: no meds or breathing tx at home. Tobacco abuse: advised cessation. He has cut back, but he declines. Hx TIA: cont ASA and Plavix Foot ulcer: healing. has dressing. not on ABX. - Procedures Procedures: 06/15/2017 ECG: NSR 06/16/2017 ECG: NSR - Laboratory Labs: Laboratory Results - last 48 hr 06/15/17 06/15/17 06/15/17 14:11 14:11 14:12 WBC 9.0 RBC 6.24 H Hgb 14.7 Hct 43.7 MCV 70.0 L MCH 23.6 L MCHC 33.6 RDW Std Deviation 41.7 Plt Count 231 MPV 10.8 Immature Gran % (Auto) 0.2 Neut % (Auto) 48.5 Lymph % (Auto) 39.3 [place] % (Auto) 7.0 Eos % (Auto) 4.4 H Baso % (Auto) 0.6 Neut # (Auto) 4.3 Lymph # (Auto) 3.5 [place] # (Auto) 0.6 Eos # (Auto) 0.4 Baso # (Auto) 0.1 Abs Immat Gran (auto) 0.02 INR 1.03 D-Dimer < 150 Turbidity < 20 Sodium 142 Potassium 4.0 Chloride 106 Carbon Dioxide 25 Anion Gap 11 BUN 14.0 Creatinine 0.6 L GFR Calculation 143 BUN/Creatinine Ratio 23 Glucose 183 H Glucometer Calculated Osmolality 279 Calcium 9.4 Icterus Index < 2 Troponin I < 0.012 B-Natriuretic Peptide < 11.1 Specimen Hemolysis < 15 Ur Collection Type Urine Color Urine Clarity Urine pH Ur Specific [place] Urine Protein Urine Glucose (UA) Urine Ketones Urine Occult Blood Urine Nitrate Urine Bilirubin Urine Urobilinogen Ur Leukocyte Esterase Urinalysis Comment Trop negative x4. History of Present Illness HPI: This is a 52 year old patient known to Dr. Kelly for CAD, TIAs, HTN, orthostatic hypotension, DMT1, COPD, and anxiety/depression and smokes. He reports he had a coronary stent about 10 yrs ago. He last saw Dr. Kelly 2 years ago and thinks his last stress test was 3 years ago. He states he had a diabetic wound on his right foot he has been dealing with for about 1 yr; which is healing now. 12/27 - he presented to [facility] with right neck pain and numbness and tingling in his right forearm, and lightheadedness. His BP was 110's. He was transferred to [facility] neurology unit. MRI of brain reported no acute abnormalities. MRI of spine reported early degenerative disc changes in C3-4 and C6-7, no acute abnormality in cervical spine. US of carotids < 50% in ICA due to trace plaquing. He presented to the [facility] ER today with chest pressure. About noon he was sitting when he developed sudden mid upper chest pressure radiating to his right shoulder. He felt his heart stop for a second 3 times. In addition he had right shoulder numbness and tingling radiating from his right shoulder down his arm into the last 3 fingers. He was afraid he was having a heart attack and called family who brought him to ER. He walks up down the stairs at home several times day and does not have any chest pain with activity at home. He is unemployed due to his foot ulcer. He states this chest pressure is similar to his chest pain prior to his stent. In ER ECG: NSR, Trop neg. He received Ntg sl x3 for progressive relief of the pain until it relieved his chest pain completely. Hospital Course Denies CP since receiving Ntg in ER. Trop neg x4. ECG: NSR unchanged the next day. Labs and VS stable. He is DC to home with family. Time spent with patient: 25 - 35 minutes DVT Prophylaxis: other GI Prophylaxis: Protonix Exam Vital signs: Temperature 97.7 F 06/16/17 07:29 Pulse Rate 84 06/16/17 08:00 Respiratory Rate 16 06/16/17 07:29 Blood Pressure 131/67 06/16/17 07:29 Pulse Oximetry 97 06/16/17 07:29 - Constitutional no acute distress - Routine Respiratory Exam Present: CTA bilaterally - Routine Cardiovascular Exam Present: RRR, no murmur - Routine Abdominal Exam Present: soft, non distended - Routine Extremities Exam Present: no edema Comments: Feet warm and pink. Right foot with dressing. - Routine Back/Spine/Pelvis Exam Back/Spine: Present: full ROM - Routine Skin Exam Present: intact, dry, wounds (righ foot and small dressing intact. ) - Routine Neurological Exam Present: alert, oriented X3, moving all extremities, normal speech - Routine Psychiatric Exam Present: normal affect, normal thought process, good insight, good judgment Results 06/15/17 14:12 06/15/17 14:11 Cardiac Enzymes 06/15/17 06/15/17 06/16/17 Range/Units 16:25 21:51 03:42 Troponin I < 0.012 < 0.012 < 0.012 (0-0.12) ng/ml Intake and Output 06/15/17 06/16/17 06/16/17 22:59 06:59 14:59 Intake Total 120 / 620 240 / 240 240 / 240 Balance 120 / 620 240 / 240 240 / 240 Intake: Oral 120 / 120 240 / 240 240 / 240 Other: Weight 203 lb 0.732 oz 205 lb 4.006 oz Patient Weight 06/17/17 06:59 Weight 205 lb 4.006 oz - EKG Interpretation EKG: sinus rhythm Discharge Plan - Med Rec/Dispo Referrals/Follow Up: Trupti Tejdaa DO [Family Provider] - Edu Kelly MD [Physician] - 1 Week (in 1 to 2 weeks. I will send a note to call you. If you do not hear from us in 1 week, please call our office at [phone]) Rafael Instructions: Angina (DC) Prescriptions: No Action Atorvastatin Calcium 40 mg PO HS #0 Insulin Aspart [Novolog Flexpen] 20 - 21 unit SQ WS #0 Aspirin 81 mg PO HS #0 Pantoprazole Sodium 40 mg PO HS #0 Clopidogrel Bisulfate [Clopidogrel] 75 mg PO HS #0 Insulin Degludec *U100* [Tresiba Flextouch U-100 Pen] 37 unit SQ HS #0 [place]-3/Dha/Epa/Fish Oil [Fish Oil 1,000 mg Softgel] 1 cap PO HS Duloxetine HCl [Duloxetine HCl] 90 mg PO HS - Disposition 01 Discharged Home, Self-Care - Dismissal Complete Discharge Instructions are:: Complete Attestation Narriative - Attestation Attestation Narrative: RN called in script for NTG sl. <Edu Kelly - Last Filed: 06/17/17 16:01> Discharge Information Date of admission: 06/15/17 16:19 Attending Physician: Edu Kelly MD Primary care physician: Trupti Tejada, DO - Discharge Diagnosis (1) Chest pain Status: Resolved (2) CAD (coronary artery disease) Status: Chronic (3) COPD (chronic obstructive pulmonary disease) Status: Chronic (4) Tobacco abuse Status: Chronic (5) Diabetic peripheral neuropathy associated with type 1 diabetes mellitus Status: Chronic (6) Foot ulcer, right Status: Chronic (7) Type 1 diabetes mellitus with hyperglycemia Status: Chronic (8) Skipped heart beats Status: Acute Hospital Course This is a general summary of the patient's hospital course. For more details refer to the complete medical record. Exam Vital signs: Temperature 97.7 F 06/16/17 07:29 Pulse Rate 84 06/16/17 08:00 Respiratory Rate 16 06/16/17 07:29 Blood Pressure 131/67 06/16/17 07:29 Pulse Oximetry 97 06/16/17 07:29 Results 06/15/17 14:12 06/15/17 14:11 Attestation Narriative - Attestation Attestation Narrative: 06/17/17 16:01 Recommendation After examining the patient I agree with the above assessment. I am involved in the formulation of the patient's plan of care.
[2017-06-16] MEDS ORDERED: INFLUENZA VAC. INJ. ADMIN CHARGE INJ ONE (13:19)
[2017-06-16] MEDS ORDERED: NON-FORMULARY MEDICATION 1 EACH EACH (Insulin Aspart [Novolog Flexpen] 20 UNIT) SQ SCH (17:30)
[2017-06-16] MEDS ORDERED: INSULIN ASPART 100unit/ml INJECTION SQ SCH (17:30)
[2017-06-16] MEDS ORDERED: OMEGA-3 ACID ESTERS 1 GM CAPSULE PO SCH (21:00)
== END 2017-06-16 13:20 | disposition home or self-care (01) ==
LOC: ED 13:49 → SRG 13:49
PROVIDERS: ADMIT Internal Medicine Cardiovascular Disease; ATTEND Internal Medicine Cardiovascular Disease